=== PATIENT | male | born 1960 | race Caucasian/White ===

== ENCOUNTER 2020-09-16 07:46 | Day surgery (SDC) | payer BC ==
[2020-09-15 09:13] LABS: Absolute Lymphocytes (CBC) 1.5 K/uL (0.7-4.9); Basophils % 0.5 % (0-1.3); Hematocrit 47.8 % (39.6-49.0); Lymphocytes % 18.8 % (15.3-44.8); MPV 8.6 fL (7.6-11.3); RBC Red Blood Cell Count 5.49 M/uL (4.33-5.43)
[2020-09-15 09:28] LABS: Potassium 4.6 mmol/L (3.5-5.1)
--- NOTE | 2020-09-16 06:10 | EKG ---
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
--- OUTSIDE RECORDS SUMMARY | 2020-09-16 07:48 | XMS REPORT | Clinical Summary ---
:1960 Author Organization [facility] Address [address] [place] [id number] Care Team Providers Name Role Phone Caden Duffy MD Primary Care Provider Allergies Active Allergy Reactions Severity Noted Date Comments Penicillin 10/17/2017 Medications Medication Sig Dispensed Refills Start Date End Date Status acetaminophen-codeine TK 1 T PO Q 6 0 10/17/2017 Active (TYLENOL WITH CODEINE #3) H PRN 300-30 mg per tablet etodolac (LODINE) 500 MG TK 1 T PO BID 3 11/27/2017 Active tablet methylPREDNISolone (MEDROL TK UTD ON 0 10/17/2017 Active DOSEPAK) 4 mg tablet PACKAGE Active Problems No known active problems Surgical History Surgery Date Site/Laterality Comments KNEE SURGERY LUMBAR SPINE SURGERY 09/04/1989 - 09/03/1990 L4-5 -- Dr. Dickey LUMBAR SPINE SURGERY 09/04/1995 - 09/03/1996 L4-5 - Dr. Collins LUMBAR SPINE SURGERY 09/04/2013 - 09/03/2014 L4-5 -- [facility] - Dr. Tirado SHOULDER SURGERY 09/04/2015 - 09/03/2016 [facility] -- Dr. Palacios KNEE SURGERY 09/04/2016 - 09/03/2017 [place] -- Dr. Palacios Medical History Medical History Date Comments Chronic back pain Family History Medical History Relation Name Comments Cancer Father Cancer Mother Cancer Sister Relation Name Status Comments Father Mother Sister Social History Tobacco Use Types Packs/Day Years Used Date Never Smoker Smokeless Tobacco: Never Used Tobacco Cessation: Counseling Given: No Alcohol Use Drinks/Week oz/Week Comments Yes social Sex Assigned at Date Recorded Not on file Last Filed Vital Signs Not on file Plan of Treatment Health Maintenance Due Date Last Done Comments COVID-19 VACCINE (1 of 2) 1978 COLONOSCOPY SCREENING 2012 SHINGLES VACCINES (#1) 2012 INFLUENZA VACCINE 04/04/2020 Results Not on fileafter 09/16/2019 Advance Directives For more information, please contact: [phone] Type Date Recorded 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
[2020-09-16] MEDS ORDERED: Ringers Lactate 1,000 ML IV ONE (08:13)
[2020-09-16] MEDS: CEFAZOLIN/SWI 1gm 1 GM/10 ML SYR ONE ×2 (08:55→09:15)
[2020-09-16] MEDS ORDERED: FENTANYL CITR 100 MCG/2 ML ONE (08:58)
[2020-09-16] MEDS ORDERED: MIDAZOLAM HCL 2 MG/2 ML INJ ONE (08:58)
[2020-09-16] MEDS ORDERED: propofoL 200 MG/20 ML VIAL IV ONE (08:58)
[2020-09-16] MEDS ORDERED: KETOROLAC 30 MG/ML INJ ONE (08:59)
[2020-09-16] MEDS ORDERED: LIDOCAINE 2% MPF 5 ML VIAL ONE (08:59)
[2020-09-16] MEDS ORDERED: dexAMETHasone 4 MG/ML VIAL ONE (08:59)
[2020-09-16] MEDS ORDERED: ONDANSETRON 4 MG/2 ML VIAL ONE (08:59)
--- NOTE | 2020-09-16 10:55 | OP ---
Date of Procedure: 09/16/2020 Surgeon: Chris Pennington MD [employer] Installer: BLU Villatoro. Preoperative Diagnosis: Back mass. Postoperative Dignosis: Back mass. Procedure: Wide excision, back mass 5 x 3 cm with layered closure. Estimated Blood Loss: Minimal. Specimen: Right back mass. Findings: As above. Anesthesia: General. Complications: None. Disposition: The patient tolerated the procedure in stable condition and taken to Recovery in good g eneral condition. Procedure In Detail: The patient was brought to the OR and placed in supine position. General anest hesia was begun. The patient placed in the left lateral position. Prepped and draped in the usual s terile fashion. Then, Marcaine 0.5% was infiltrated locally. A 15-blade was used to make a 5 x 3 cm incision in the right mid back. This was in total excised and sent to Pathology as specimen. Wound irrigated. Bleeding controlled with cautery. Then, flaps were created and 0 chromic used to reappr oximate subcutaneous tissue and 2-0 nylon used to close the skin. Sterile dressing was applied. The patient was awakened and taken to Recovery in good condition. Discharge Note: The patient will go to Day Surgery and home when stable. Disposition: Home. Condition: Stable. Discharge Instructions: Resume home medications and diet. Activity as tolerated. No heavy lifting. Remove outer dressing in 2 days. Shower. Keep wound clean and dry. Follow up in my office in a w [place] & [place]. Call for appointment. Tylenol No. 3 one tablet p.o. q.4 p.r.n. pain. /MODL Voice ID: [id number] Report ID: [id number]
[2020-09-16 13:45] VITALS: BP 132/82; TEMP 97; O2SAT 94
== END 2020-09-16 11:50 | disposition home health service (06) ==
LOC: OR 07:46
PROVIDERS: ATTEND Surgery
PROC: 0JB70ZZ Excision of Back Subcutaneous Tissue and Fascia, Open Approach (ICD-10-PCS; principal; 2020-09-16 09:00)
DX: D17.1 Benign lipomatous neoplasm of skin and subcutaneous tissue of trunk (principal); Z20.822 Contact with and (suspected) exposure to COVID-19
CPT/HCPCS: 93005; 85025; 80048; 36415; 88305; 11406; U0002; J2704; J1100; J2250; J3010; J0690; J7120; J2405; 88304

== ENCOUNTER 2020-09-28 07:26 | Day surgery (SDC) | payer BC ==
[~2020-09-28 07:26] MED LIST: CIPROFLOXACIN 400mg IV 400 MG/200 ML BAG IV SCH
--- OUTSIDE RECORDS SUMMARY | 2020-09-28 07:32 | XMS REPORT | Clinical Summary ---
:1960 Author Organization [facility] Address [address] [place] [id number] Care Team Providers Name Role Phone Caden [...] SPINE SURGERY 09/04/2013 - 09/03/2014 L4-5 -- [facility] - Dr. Tirado SHOULDER SURGERY 09/04/2015 - 09/03/2016 [facility] -- Dr. Palacios KNEE SURGERY 09/04/2016 - 09/03/2017 [facility] -- Dr. 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
[2020-09-28] MEDS ORDERED: Ringers Lactate 1,000 ML IV ONE (08:00)
[2020-09-28] MEDS ORDERED: CIPROFLOXACIN 400mg IV 400 MG/200 ML BAG IV ONE (08:00)
[2020-09-28] MEDS ORDERED: propofoL 200 MG/20 ML VIAL IV ONE (08:27)
[2020-09-28] MEDS ORDERED: FENTANYL CITR 100 MCG/2 ML ONE (08:28)
[2020-09-28] MEDS ORDERED: LIDOCAINE 1% MPF 30 ML VIAL ONE (08:28)
[2020-09-28] MEDS ORDERED: MIDAZOLAM HCL 2 MG/2 ML INJ ONE (08:28)
[2020-09-28] MEDS ORDERED: KETOROLAC 30 MG/ML INJ ONE (09:27)
[2020-09-28] MEDS ORDERED: ONDANSETRON 4 MG/2 ML VIAL ONE (09:27)
[2020-09-28] MEDS ORDERED: dexAMETHasone 10 MG/ML VIAL ONE (09:27)
--- NOTE | 2020-09-28 09:44 | OP ---
Date of Procedure: 09/28/2020 Surgeon: Chris Pennington MD Rehab Aide: BLU Villatoro. Preoperative Diagnosis: Right back mass, benign tumor, margins closed. Postoperative Diagnosis: Right back mass, benign tumor, margins closed. Procedure: Wide excision, right back mass 10 x 4 cm with layered closure. Estimated Blood Loss: Minimal. Specimen: Right back mass. Finding: As above. Anesthesia: General. Complications: None. Disposition: The patient tolerated the procedure in stable condition and taken to Recovery in good g eneral condition. Description Of Procedure: The patient was brought to the OR and placed in the left lateral position, prepped and draped in the usual sterile fashion. Marcaine 0.5% was infiltrated locally. A 15-blade was used to make a 10 x 4 cm incision to excise the previous incisions and the dissection proceeded through the all the way down to the muscle along the subcutaneous tissue. It was excised and the who le biopsy cavity was excised and sent to Pathology after being appropriately labeled. Wound was irri gated. Bleeding controlled with cautery. Flaps created. 0 chromic and 2-0 chromic were used to dimas roximate the deep subcutaneous tissue and then 3-0 nylon was used to close the skin. Sterile dressin g was applied. The patient was awakened and taken to Recovery in good general condition. Discharge Note: The patient will go to Day Surgery and home when stable. Disposition: Home. Condition: Stable. Discharge Instructions: Resume home medications and diet. Activity as tolerated. No heavy lifting. Remove outer dressing in 2 days. Shower. Keep wound clean and dry. Follow up in my office in 2 w eems. Call for appointment. Tylenol No. 3 one tablet p.o. q.4 p.r.n. pain. Keflex 500 mg p.o. q.6h . /MODL Voice ID: [id number] Report ID: [id number]
[2020-09-28 10:18] VITALS: BP 124/87; TEMP 97; O2SAT 96
[2020-09-28] MEDS ORDERED: HYDROCODONE/APAP 7.5/325 MG TAB ONE (10:43)
== END 2020-09-28 11:00 | disposition home or self-care (01) ==
LOC: OR 07:26
PROVIDERS: ATTEND Surgery
PROC: 0JB70ZZ Excision of Back Subcutaneous Tissue and Fascia, Open Approach (ICD-10-PCS; principal; 2020-09-28 08:30)
DX: R22.2 Localized swelling, mass and lump, trunk (principal); Z20.822 Contact with and (suspected) exposure to COVID-19
CPT/HCPCS: 88305; 11406; U0002; J2704; J2250; J3010; J1100; J7120; J2405; J0744

== ENCOUNTER 2021-02-22 13:41 | Emergency (ER) | payer BC ==
--- NOTE | 2021-02-22 16:28 | RAD REPORT ---
EXAM DESCRIPTION: RAD - Chest Single View - 02/22/2021 4:14 pm CLINICAL HISTORY: COUGH Chest pain. COMPARISON: Chest Pa And Lat (2 Views) dated 08/04/2020; CHEST SINGLE VIEW dated 03/03/2010; CHEST SIN GLE VIEW dated 03/02/2010; CHEST SINGLE VIEW dated 08/05/2006 FINDINGS: Portable technique limits examination quality. Mild interstitial lung opacities are present, suggesting bronchitis or viral infection. The heart is normal in size. No displaced fractures.
--- NOTE | 2021-02-22 16:48 | ER ---
Nurse's Notes [facility] Name: Angel Luis Sales Age: 60 yrs Sex: Male : 1960 Arrival Date: 02/22/2021 Time: 13:44 Bed 26 Private MD: Diagnosis: Coronavirus infection, unspecified Presentation: 02/22 14:07 Chief complaint: Patient states: Can't take deep breaths, chest pain for 3-4 days. ll1 Covid symptoms for 5 days, fatigue, weak, body aches. His test was negative, although his 's was positive. Coronavirus screen: Client denies travel out of the [place] in the last 14 days. chills, congestion, cough unrelated to allergies, difficulty breathing, fatigue, fever, headache, muscle pain, runny nose, shaking with chills, shortness of breath, loss of taste or smell, Client presents with at least one sign or symptom that may indicate coronavirus-19. Standard/surgical mask placed on the client. Ebola Screen: Patient denies travel to an Ebola-affected area in the 21 days before illness onset. Initial Sepsis Screen: Does the patient meet any 2 criteria? HR > 90 bpm. No. Patient's initial sepsis screen is negative. Does the patient have a suspected source of infection? Yes: Productive cough/pneumonia. Risk Assessment: Do you want to hurt yourself or someone else? Patient reports no desire to harm self or others. Onset of symptoms was February 18, 2021. 14:07 Method Of Arrival: Ambulatory ll1 14:07 Acuity: JOE 3 ll1 Triage Assessment: 15:23 General: Appears in no apparent distress. Behavior is calm, cooperative. Pain: Denies ak2 pain. Respiratory: Reports shortness of breath Onset: The symptoms/episode began/occurred gradually, the patient has mild shortness of breath Denies. 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 Flu vaccine is not up to date. - Social history:: Smoking status: Patient denies any tobacco usage or history of. Screenin:24 Abuse screen: Denies threats or abuse. Denies injuries from another. Nutritional ak2 screening: No deficits noted. Tuberculosis screening: No symptoms or risk factors identified. Fall Risk None identified. Assessment: 15:24 General: Appears in no apparent distress. Pain: Denies pain. Neuro: No deficits noted. ak2 Cardiovascular: Rhythm is regular. Respiratory: Airway is patent Respiratory effort is even, unlabored, Vital Signs: 14:07 BP 150 / 95; Pulse 94; Resp 17; Temp 98.8; Pulse Ox 100% ; Weight 77.11 kg; Height 5 ll1 ft. 6 in. (167.64 cm); Pain 8/10; 15:25 BP 149 / 80; Pulse 86; Resp 20; Pulse Ox 96% on R/A; ak2 16:54 BP 132 / 74; Pulse 78; Resp 18; Pulse Ox 100% on R/A; ak2 14:07 Body Mass Index 27.44 (77.11 kg, 167.64 cm) ll1 ED Course: 13:44 Patient arrived in ED. wm 14:11 Triage completed. ll1 14:12 Arm band placed on. ll1 14:14 Aileen Iverson FNP-C is [facility]. kb 14:14 Timoteo Tucker MD is Attending Physician. kb 15:20 Heriberto Meek is Primary Nurse. ak2 15:24 Patient has correct armband on for positive identification. ak2 15:24 No provider procedures requiring assistance completed. ak2 16:55 Patient did not have IV access during this emergency room visit. ak2 Administered Medications: No medications were administered Outcome: 16:47 Discharge ordered by MD. kb 16:54 Discharged to home ambulatory. ak2 16:54 Condition: good 16:54 Discharge instructions given to patient. 16:55 Patient left the ED. ak2 Signatures: Aileen Iverson FNP-C FNP-Jaya Mccord RN RN 1 Heriberto Meek ak2 Kristin Verma
--- NOTE | 2021-02-22 16:48 | EDPHYS ---
Physician Documentation [facility] Name: Angel Luis Sales Age: 60 yrs Sex: Male : 1960 Arrival Date: 02/22/2021 Time: 13:44 Bed 26 Private MD: ED Physician Timoteo Tucker HPI: 02/22 17:28 This 60 yrs old Male presents to ER via Ambulatory with complaints of kb Shortness Of Breath. 17:28 The patient or guardian reports cough, difficulty breathing, flu symptoms, low-grade kb fever. Onset: The symptoms/episode began/occurred 1 week(s) ago. Severity of symptoms: At their worst the symptoms were mild, in the emergency department the symptoms are unchanged. Modifying factors: The symptoms are alleviated by nothing, the symptoms are aggravated by nothing. Associated signs and symptoms: Pertinent positives: fever. The patient has not experienced similar symptoms in the past. The patient has not recently seen a physician. Pt reports cough, fever, fatigue and malaise for a week. States his tested positive for covid and has had the same symptoms. States he brought her in to be evaluated today, but figured he would get checked out too while he was here. Pt tested negative for covid at onset of symptoms. 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 Flu vaccine is not up to date. - Social history:: Smoking status: Patient denies any tobacco usage or history of. ROS: 15:55 Constitutional: Positive for body aches, chills, fatigue, fever, malaise. kb 15:55 Respiratory: Positive for cough, shortness of breath, Negative for dyspnea on exertion, hemoptysis, orthopnea, pleurisy, sputum production, wheezing. 15:55 All other systems are negative. 17:35 Neuro: Negative for headache, weakness, numbness, tingling, and seizure. kb Exam: 17:26 Constitutional: This is a well developed, well nourished patient who is awake, alert, kb and in no acute distress. Head/Face: Normocephalic, atraumatic. ENT: Moist Mucous membranes Cardiovascular: Regular rate and rhythm with a normal S1 and S2. No gallops, murmurs, or rubs. No pulse deficits. Respiratory: Respirations even and unlabored. No increased work of breathing, no retractions or nasal flaring. Abdomen/GI: Soft, non-tender. No distention Skin: Warm, dry with normal turgor. Normal color. MS/ Extremity: Pulses equal, no cyanosis. Neurovascular intact. Full, normal range of motion. Neuro: Awake and alert, GCS 15, oriented to person, place, time, and situation. Moves all extremities. Normal gait. Psych: Awake, alert, with orientation to person, place and time. Behavior, mood, and affect are within normal limits. 17:26 Respiratory: Breath sounds: are clear throughout. Vital Signs: 14:07 BP 150 / 95; Pulse 94; Resp 17; Temp 98.8; Pulse Ox 100% ; Weight 77.11 kg; Height 5 ll1 ft. 6 in. (167.64 cm); Pain 8/10; 15:25 BP 149 / 80; Pulse 86; Resp 20; Pulse Ox 96% on R/A; ak2 16:54 BP 132 / 74; Pulse 78; Resp 18; Pulse Ox 100% on R/A; ak2 14:07 Body Mass Index 27.44 (77.11 kg, 167.64 cm) ll1 MDM: 15:17 Patient medically screened. 15:53 Data reviewed: vital signs, nurses notes. Data interpreted: Pulse oximetry: on room air kb is 96 %. Interpretation: normal. 16:47 Counseling: I had a detailed discussion with the patient and/or guardian regarding: the kb historical points, exam findings, and any diagnostic results supporting the discharge/admit diagnosis, lab results, radiology results, the need for outpatient follow up, a family practitioner, to return to the emergency department if symptoms worsen or persist or if there are any questions or concerns that arise at home. 02/22 14:14 Order name: COVID-19 : Document "Date of Symptom Onset" if Symptomatic. 02/22 14:57 Order name: CORONAVIRUS EDMS 02/22 14:14 Order name: Chest Pa And Lat (2 Views) XRAY 02/22 16:29 Order name: RAD; Complete Time: 16:29 EDMS 02/22 16:45 Order name: SARS-COV-2 RT PCR; Complete Time: 16:47 EDMS Administered Medications: No medications were administered Disposition: 02/22/21 16:47 Discharged to Home. Impression: Coronavirus infection, unspecified. - Condition is Stable. - Discharge Instructions: COVID-19. - Medication Reconciliation Form, Thank You Letter, Antibiotic Education, Prescription Opioid Use form. - Follow up: Emergency Department; When: As needed; Reason: Worsening of condition. Follow up: Private Physician; When: 2 - 3 days; Reason: Recheck today's complaints, Continuance of care, Re-evaluation by your physician. Signatures: Dispatcher [employer] EDAileen Osorio, EDITH MCKENZIE-Jaya Mccord RN RN ll1 Heriberto Meek Corrections: (The following items were deleted from the chart) 16:55 16:47 02/22/2021 16:47 Discharged to Home. Impression: Coronavirus infection, ak2 unspecified. Condition is Stable. Forms are Medication Reconciliation Form, Thank You Letter, Antibiotic Education, Prescription Opioid Use. Follow up: Emergency Department; When: As needed; Reason: Worsening of condition. Follow up: Private Physician; When: 2 - 3 days; Reason: Recheck today's complaints, Continuance of care, Re-evaluation by your physician. kb
[2021-02-22 17:35] VITALS: TEMP 98.8
[2021-02-22 17:39] VITALS: BP 132/74; O2SAT 100
== END 2021-02-22 16:55 | disposition home or self-care (01) ==
LOC: ER 13:41
DX: U07.1 COVID-19 (principal); Z85.72 Personal history of non-Hodgkin lymphomas
CPT/HCPCS: 71045; 99281; U0003

== ENCOUNTER 2021-02-24 07:50 | Observation (INO) | payer BC ==
--- NOTE | 2021-02-24 08:33 | RAD REPORT ---
EXAM DESCRIPTION: RAD - Chest Single View - 02/24/2021 8:27 am CLINICAL HISTORY: COVID +;Cough Chest pain. COMPARISON: Chest Single View dated 02/22/2021; Chest Pa And Lat (2 Views) dated 08/04/2020; CHEST SIN GLE VIEW dated 03/03/2010; CHEST SINGLE VIEW dated 03/02/2010 FINDINGS: Portable technique limits examination quality. Moderate bilateral pulmonary opacities are noted, moderately progressive since the comparative study. Most likely, this is related to pulmonary infection/viral infection. The heart is upper limit normal in size. No displaced fractures.
[2021-02-24 08:37] LABS: Absolute Lymphocytes (CBC) 0.5 K/uL (0.7-4.9); Basophils % 0.5 % (0-1.3); Lymphocytes % 18.6 % (15.3-44.8); MPV 8.8 fL (7.6-11.3); RBC Red Blood Cell Count 5.02 M/uL (4.33-5.43)
[2021-02-24] MEDS ORDERED: METHYLPREDNISOLONE 125 MG INJ ONE (08:49)
[2021-02-24 08:57] LABS: Potassium 3.7 mmol/L (3.5-5.1)
[2021-02-24] MEDS ORDERED: HYDROCODONE/CHLORPHEN 5 ML/OSYR ONE (08:57)
--- NOTE | 2021-02-24 11:30 | EDPHYS ---
Physician Documentation [facility] Name: Angel Luis Sales Age: 60 yrs Sex: Male : 1960 Arrival Date: 02/24/2021 Time: 07:52 Bed 18 Private MD: Caden Triana R ED Physician Lv Mccurdy HPI: 02/24 09:47 This 60 yrs old Male presents to ER via Ambulatory with complaints of Fever, rn Breathing Difficulty, Chest Pain. 09:47 The patient reports fever, not measured (subjective). Onset: The symptoms/episode rn began/occurred 1 week(s) ago. Modifying factors: there are no obvious modifying factors. Associated signs and symptoms: Pertinent positives: chills, cough, shortness of breath, Pertinent negatives: abdominal pain, altered mental status. Severity of symptoms: At their worst the symptoms were moderate in the emergency department the symptoms are unchanged. The patient has not experienced similar symptoms in the past. The patient has been recently seen by a physician:. Reports tested positive for COVID this past week, now symptoms worsening, reports increased sob. No chronic lung problems.. 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 - Social history:: Smoking status: . - Family history:: not pertinent. - Hospitalizations: : No recent hospitalization is reported. 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 Exam: 09:47 Constitutional: This is a well developed, well nourished patient who is awake, alert, rn + mild tachypnea Head/Face: Normocephalic, atraumatic. Eyes: Pupils equal round and reactive to light, extra-ocular motions intact. Lids and lashes normal. Conjunctiva and sclera are non-icteric and not injected. Cornea within normal limits. Periorbital areas with no swelling, redness, or edema. Cardiovascular: Regular rate and rhythm. No pulse deficits. Respiratory: + mild tachypnea, no retractions Abdomen/GI: soft, non-tender Skin: Warm, dry MS/ Extremity: Pulses equal, no cyanosis. Neuro: Awake and alert, GCS 15 Vital Signs: 07:57 BP 142 / 80; Pulse 96; Resp 18; Pulse Ox 100% on R/A; ph 07:57 Temp 98.9; Weight 77.11 kg; Height 5 ft. 6 in. (167.64 cm); ph 09:26 BP 140 / 87; Pulse 91; Resp 24; Pulse Ox 92% on R/A; ph 11:00 BP 126 / 78; Pulse 86; Resp 22; Pulse Ox 91% on R/A; ph 12:08 BP 118 / 72; Pulse 97; Resp 22; Pulse Ox 93% on R/A; ph 13:10 BP 130 / 79; Pulse 82; Resp 22; Pulse Ox 91% on R/A; ph 14:00 BP 118 / 72; Pulse 89; Resp 20; Pulse Ox 91% on R/A; ph 15:30 BP 127 / 82; Pulse 87; Resp 20; Pulse Ox 92% on R/A; ph 07:57 Body Mass Index 27.44 (77.11 kg, 167.64 cm) ph MDM: 08:03 Patient medically screened. rn 11:28 Differential diagnosis: viral Infection, URI, pneumonia. Data reviewed: vital signs, rn nurses notes, lab test result(s), radiologic studies, plain films, and as a result, I will admit patient. Counseling: I had a detailed discussion with the patient and/or guardian regarding: the historical points, exam findings, and any diagnostic results supporting the discharge/admit diagnosis, lab results, radiology results, the need for further work-up and treatment in the hospital. Response to treatment: the patient's symptoms have mildly improved after treatment, and as a result, I will admit patient. Admission orders: after a detailed discussion of the patient's condition and case, the admit orders are written by me. ED course: Pt with worsening COVID pneumonia, oxygen 91%, still feels bad, will obs to Dr. Lacey for further care. . 02/24 08:04 Order name: Blood Culture Adult (2) rn 02/24 08:04 Order name: BMP rn 02/24 08:04 Order name: CBC with Diff rn 02/24 08:04 Order name: NT PRO-BNP rn 02/24 08:04 Order name: Procalcitonin rn 02/24 08:39 Order name: CBC with Automated Diff; Complete Time: 11:03 EDMS 02/24 08:04 Order name: XRAY CXR (1 view) rn 02/24 08:34 Order name: RAD; Complete Time: 11:03 EDMS 02/24 08:57 Order name: Basic Metabolic Panel; Complete Time: 11:03 EDMS 02/24 08:57 Order name: NT PRO-BNP; Complete Time: 11:03 EDMS 02/24 09:22 Order name: Procalcitonin; Complete Time: 11:03 EDMS 02/24 15:10 Order name: D-Dimer EDMT 02/24 15:37 Order name: C-Reactive Protein EDMT 02/24 15:37 Order name: Ferritin EDMT 02/24 08:04 Order name: EKG; Complete Time: 08:05 rn 02/24 08:04 Order name: Cardiac monitoring; Complete Time: 08:23 rn 02/24 08:04 Order name: EKG - Nurse/Tech; Complete Time: 09:38 rn 02/24 08:04 Order name: IV Saline Lock; Complete Time: 08:23 rn 02/24 08:04 Order name: Labs collected and sent; Complete Time: 08:23 rn 02/24 08:04 Order name: O2 Per Protocol; Complete Time: 08:23 rn 02/24 08:04 Order name: O2 Sat Monitoring; Complete Time: 08:23 rn 02/24 14:32 Order name: Labs - recollect needed; Complete Time: 19:36 ss Administered Medications: 08:50 Drug: SOLU-Medrol (methylPrednisoLONE) 125 mg Route: IVP; Site: right antecubital; ph 09:38 Follow up: Response: No adverse reaction ph 08:50 Drug: Tussionex Pennkinetic ER (chlorpheniramine-hydrocodone) 5 ml Route: PO; ph 09:38 Follow up: Response: No adverse reaction ph Disposition: 02/24/21 11:30 Hospitalization ordered by Dell Lacey for Observation. Preliminary diagnosis are Viral pneumonia, not elsewhere classified - COVID, Hypoxemia. - Bed requested for Intensive Care Unit. - Status is Observation. ph - Condition is Stable. - Problem is new. - Symptoms have worsened. Signatures: Dispatcher [employer] EDMS Lv Mcucrdy MD MD rn Smirch, Shelby, RN RN ss Roro Zamora RN RN ph Jennifer Martinez RN RN tw2 Corrections: (The following items were deleted from the chart) 14:37 11:30 Hospitalization Ordered by Dell Lacey DO for Observation. Preliminary ss diagnosis is Viral pneumonia, not elsewhere classified - COVID; Hypoxemia. Bed requested for Telemetry/MedSurg (observation). Status is Observation. Condition is Stable. Problem is new. Symptoms have worsened. rn 17:06 14:37 02/24/2021 11:30 Hospitalization Ordered by Dell Lacey DO for Observation. ph Preliminary diagnosis is Viral pneumonia, not elsewhere classified - COVID; Hypoxemia. Bed requested for Intensive Care Unit. Status is Observation. Condition is Stable. Problem is new. Symptoms have worsened. ss
--- NOTE | 2021-02-24 11:30 | ER ---
Nurse's Notes [facility] Name: Angel Luis Sales Age: 60 yrs Sex: Male : 1960 Arrival Date: 02/24/2021 Time: 07:52 Bed 18 Private MD: Caden Triana R Diagnosis: Viral pneumonia, not elsewhere classified-COVID;Hypoxemia Presentation: 02/24 07:55 Chief complaint: Patient states: i tested + for COVID and i thought i had a handle on tw2 it but last night it just seemed to get worse. i am coughing \T\ SOB. Coronavirus screen: cough unrelated to allergies, difficulty breathing, fever, muscle pain, Client presents with at least one sign or symptom that may indicate coronavirus-19. Standard/surgical mask placed on the client. Provider contacted for isolation considerations. Client reports previous positive COVID test result. Ebola Screen: Patient denies travel to an Ebola-affected area in the 21 days before illness onset. Initial Sepsis Screen: Does the patient meet any 2 criteria? HR > 90 bpm. No. Patient's initial sepsis screen is negative. Does the patient have a suspected source of infection? No. Patient's initial sepsis screen is negative. Risk Assessment: Do you want to hurt yourself or someone else? Patient reports no desire to harm self or others. Onset of symptoms was February 24, 2021. 07:55 Method Of Arrival: Ambulatory tw2 07:55 Acuity: JOE 3 tw2 Triage Assessment: 07:55 General: Appears in no apparent distress. Behavior is calm, cooperative, appropriate tw2 for age. Pain: Complains of pain in back and chest. Respiratory: Reports shortness of breath at rest on exertion cough that is non-productive, persistent Onset: The symptoms/episode began/occurred yesterday, the patient has mild shortness of breath. 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 - Social history:: Smoking status: . - Family history:: not pertinent. - Hospitalizations: : No recent hospitalization is reported. Screenin:56 Abuse screen: Denies threats or abuse. Denies injuries from another. Nutritional ph screening: No deficits noted. Tuberculosis screening: No symptoms or risk factors identified. Fall Risk None identified. Assessment: 08:30 General: Appears in no apparent distress. uncomfortable, well groomed, Behavior is ph calm, cooperative, appropriate for age, Reports fever for 1-2 days. Pain: Complains of pain in chest and back. Neuro: Level of Consciousness is awake, alert, obeys commands, Oriented to person, place, time, situation. Cardiovascular: Reports chest pain, fatigue, shortness of breath, Capillary refill < 3 seconds in bilateral fingers Patient's skin is warm and dry. Respiratory: Reports shortness of breath at rest cough that is pain with cough Airway is patent Respiratory effort is labored, Respiratory pattern is tachypnea. GI: No signs and/or symptoms were reported involving the gastrointestinal system. Patient currently denies diarrhea, nausea, vomiting. Derm: Skin is intact, is healthy with good turgor, Skin is pink, warm \T\ dry. Musculoskeletal: Circulation, motion, and sensation intact. Range of motion: intact in all extremities. 10:00 Reassessment: Patient appears in no apparent distress at this time. Patient and/or ph family updated on plan of care and expected duration. Pain level reassessed. 11:00 Reassessment: Patient appears in no apparent distress at this time. Patient and/or ph family updated on plan of care and expected duration. Pain level reassessed. Patient is alert, oriented x 3, equal unlabored respirations, skin warm/dry/pink. 12:08 Reassessment: Patient appears in no apparent distress at this time. Patient and/or ph family updated on plan of care and expected duration. Pain level reassessed. Patient is alert, oriented x 3, equal unlabored respirations, skin warm/dry/pink. Dr Lacey at bedside to speak w/ pt. 13:00 Reassessment: Patient appears in no apparent distress at this time. Patient and/or ph family updated on plan of care and expected duration. Pain level reassessed. Patient is alert, oriented x 3, equal unlabored respirations, skin warm/dry/pink. 14:00 Reassessment: Patient appears in no apparent distress at this time. Patient and/or ph family updated on plan of care and expected duration. Pain level reassessed. Patient is alert, oriented x 3, equal unlabored respirations, skin warm/dry/pink. Pt resting comfortably, VSS. 15:00 Reassessment: Patient appears in no apparent distress at this time. Patient and/or ph family updated on plan of care and expected duration. Pain level reassessed. Patient is alert, oriented x 3, equal unlabored respirations, skin warm/dry/pink. Vital Signs: 07:57 BP 142 / 80; Pulse 96; Resp 18; Pulse Ox 100% on R/A; ph 07:57 Temp 98.9; Weight 77.11 kg; Height 5 ft. 6 in. (167.64 cm); ph 09:26 BP 140 / 87; Pulse 91; Resp 24; Pulse Ox 92% on R/A; ph 11:00 BP 126 / 78; Pulse 86; Resp 22; Pulse Ox 91% on R/A; ph 12:08 BP 118 / 72; Pulse 97; Resp 22; Pulse Ox 93% on R/A; ph 13:10 BP 130 / 79; Pulse 82; Resp 22; Pulse Ox 91% on R/A; ph 14:00 BP 118 / 72; Pulse 89; Resp 20; Pulse Ox 91% on R/A; ph 15:30 BP 127 / 82; Pulse 87; Resp 20; Pulse Ox 92% on R/A; ph 07:57 Body Mass Index 27.44 (77.11 kg, 167.64 cm) ph ED Course: 07:52 Patient arrived in ED. ds1 07:53 Caden Triana MD is Private Physician. ds1 07:54 Roro Zamora, ANGELICA is Primary Nurse. ph 07:57 Patient has correct armband on for positive identification. Placed in gown. Bed in low ph position. Call light in reach. Side rails up X 1. Pulse ox on. NIBP on. Door closed. Noise minimized. Warm blanket given. 08:00 Triage completed. tw2 08:03 Lv Mccurdy MD is Attending Physician. rn 08:45 Inserted saline lock: 20 gauge in right antecubital area, using aseptic technique. ph 11:29 Dell Lacey DO is Hospitalizing Provider. rn 13:11 Arm band placed on. ph 13:11 No provider procedures requiring assistance completed. ph 13:11 Patient admitted, IV remains in place. ph 14:50 Inserted saline lock: 20 gauge in left forearm, using aseptic technique. Blood dh4 collected. Administered Medications: 08:50 Drug: SOLU-Medrol (methylPrednisoLONE) 125 mg Route: IVP; Site: right antecubital; ph 09:38 Follow up: Response: No adverse reaction ph 08:50 Drug: Tussionex Pennkinetic ER (chlorpheniramine-hydrocodone) 5 ml Route: PO; ph 09:38 Follow up: Response: No adverse reaction ph Outcome: 11:30 Decision to Hospitalize by Provider. rn 17:06 Patient left the ED. ph 17:06 Admitted to Med/surg accompanied by tech, via wheelchair, with chart. ph 17:06 Condition: stable 17:06 Instructed on the need for admit. Signatures: Jessica Britton ds1 Lv Mccurdy MD MD rn Hall, Patricia, RN RN Jennifer Martinez RN RN 2 Jered Huang 4
--- NOTE | 2021-02-24 12:30 | P.HP ---
Certification for Inpatient Patient admitted to: Observation With expected LOS: <2 Midnights Patient will require the following post-hospital care: None Practitioner: I am a practitioner with admitting privileges, knowledge of patient current condition, hospital course, and medical plan of care. Services: Services provided to patient in accordance with Admission requirements found in Title 42 Section 412.3 of the Code of Federal Regulations Patient History Date of Service: 02/24/21 Primary Care Provider: Dr. Triana Reason for admission: Cough, shortness of breath History of Present Illness: 60-year-old male without any major medical problems presented to the emergency room with worsening COVID 19 like symptoms. Patient reports increasing cough, congestion, shortness of breath, fatigue, and fever over the last 7-10 days. Patient was seen in the ER on 02/22. He was diagnosed with COVID 19 at that time. His symptoms were mild and was sent home. His had similar issues in problems. His is currently admitted to the hospital for COVID 19 pneumonia. Over the last several days his with symptoms have worsened. He came to the ER for further evaluation. In the ER patient was evaluated. Patient slightly tachypneic. Room-air saturations within normal range. White count 2, hemoglobin 14. Sodium 135, potassium 3.7. BUN of 17, creatinine 1.03 with a GFR 74. Pro calcitonin within normal range. X-ray shows bilateral infiltrates suggestive of viral infection. Patient treated in the emergency room. Patient admitted for observation. Allergies Penicillins Allergy (Mild, Verified 09/28/20 08:24) unknown latex Allergy (Verified 09/28/20 08:24) Rash Home Medications: Homocysteine 1 tab PO SEECOM 09/15/20 Wob Enzymes 1 tab PO SEECOM 09/15/20 - Past Medical/Surgical History Diabetic: No Past Medical History: Patient denies medical history -: Back surgery times 2 -: Shoulder cuff repair -: Knee surgery Psychosocial/ Personal History: Patient is . 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 - Family History Family History: Reviewed- Non-Contributory - Social History Smoking Status: Never smoker Alcohol use: Yes CD- Drugs: No Caffeine use: Yes Place of Residence: Home Review of Systems General: Fever, Chills, Weakness, Malaise, As per HPI Eyes: Unremarkable ENT: Nose Congestion, As per HPI Respiratory: Cough, Shortness of Breath, SOB with Excertion, As per HPI Cardiovascular: Unremarkable Gastrointestinal: Unremarkable Genitourinary: Unremarkable Musculoskeletal: As per HPI Integumentary: Unremarkable Neurological: Unremarkable Lymphatics: Unremarkable Physical Examination - Physical Exam General: Alert, In no apparent distress, Oriented x3, Cooperative, Other (Patient with cough. Mild tachypnea noted. Room-air saturations within normal range.) HEENT: Atraumatic Neck: Supple Respiratory: Other (Decreased to the bases bilateral.) Cardiovascular: Normal pulses, Regular rate/rhythm Gastrointestinal: Normal bowel sounds, No tenderness, No masses, No rebound, No guarding Musculoskeletal: No erythema, No tenderness, No warmth Integumentary: No tenderness/swelling, No erythema, No warmth, No cyanosis Neurological: Normal speech, Normal strength at 5/5 x4 extr, Normal tone, Normal affect - Studies Laboratory Data (last 24 hrs) 02/24/21 08:20: WBC 2.60 L, Hgb 14.8, Hct 43.0, Plt Count 151 L 02/24/21 08:20: Sodium 135 L, Potassium 3.7, BUN 17, Creatinine 1.03, Glucose 91 Assessment and Plan - Plan Impression: Shortness of breath secondary to bilateral COVID 19 pneumonia Plan: Patient will be admitted for further evaluation and treatment. Will obtain CRP and ferritin to further evaluate. Will continue with IV steroids and vitamin supplementation. Will place on DVT prophylaxis-Lovenox. Will provide medication for cough. Will continue with albuterol/Atrovent as needed. Will continue to monitor CRP/ferritin. Pulmonology consulted to further evaluate. Recommend to continue proning, incentive spirometer. No need for IV Remdesivir or Acterma at this time as symptoms appear to be mild to moderate. Room-air saturations within normal range. Will continue to reassess and monitor. If significant improvement will consider discharge as early as tomorrow. If symptoms worsen will need to consider other options for treatment. Will continue to monitor closely. Anticipate improvement over the next 24-48 hr. DVT prophylaxis: Lovenox Code status: Full code Advanced care planning-30 min: Patient wishes to go home at discharge. Discharge Plan: Home Plan to discharge in: 24 Hours - Advance Directives Does patient have a Living Will: No Does patient have a Durable POA for Healthcare: No - Code Status/Comfort Care Code Status Assessed: Yes (Patient is full code) Time Spent Managing Pts Care (In Minutes): 55
[2021-02-24 15:37] LABS: Ferritin 728.2 ng/mL (26-388)
[2021-02-24] MEDS ORDERED: BENZONATATE 100 MG CAP PO PRN (17:19)
[2021-02-24] MEDS ORDERED: ALBUTEROL 2.5 MG/3 ML NEB SOL NEB PRN (17:19)
[2021-02-24] MEDS ORDERED: ACETAMINOPHEN 500 MG TAB PO PRN (17:19)
[2021-02-24] MEDS ORDERED: ONDANSETRON 4 MG/2 ML VIAL IV PRN (17:19)
[2021-02-24] MEDS ORDERED: IPRATROPIUM BROM 0.5MG/2.5ML NEB PRN (17:19)
[2021-02-24] MEDS ORDERED: IVERMECTIN 3 MG TABLET PO SCH (18:00)
[2021-02-24 18:25] VITALS: BMI 27.4
[2021-02-24] MEDS: METHYLPREDNISOLONE 125 MG INJ IV SCH (18:39)
[2021-02-24] MEDS: ENOXAPARIN 40 MG/0.4 ML SQ SCH (18:39)
[2021-02-24] MEDS: ASCORBIC ACID 500 MG TABLET PO SCH ×2 (18:39→21:39)
[2021-02-24] MEDS: FAMOTIDINE 20 MG TAB PO SCH (21:39)
[2021-02-24] MEDS: THIAMINE HCL 100 MG TABLET PO SCH (21:39)
[2021-02-25] MEDS: METHYLPREDNISOLONE 125 MG INJ IV SCH ×2 (01:39→09:22)
[2021-02-25 05:23] LABS: BUN Blood Urea Nitrogen 21 mg/dL (7-18); Bicarbonate 26 mmol/L (21-32); Glucose Level 149 mg/dL (74-106); Magnesium 2.4 mg/dL (1.8-2.4); Potassium 4.6 mmol/L (3.5-5.1); Sodium Level 136 mmol/L (136-145)
[2021-02-25 05:35] LABS: Urine Appearance CLEAR (Clear); Urine Bilirubin NEGATIVE (Negative); Urine Blood NEGATIVE (Negative); Urine Color YELLOW (Yellow); Urine Glucose NEGATIVE (Negative); Urine Protein 1+ (Negative); Urine Specific Gravity >=1.030 (1.005-1.030)
--- NOTE | 2021-02-25 05:49 | P.PN ---
Subjective Date of Service: 02/25/21 Primary Care Provider: Dr. Triana Chief Complaint: Cough, shortness of breath Subjective: Improving, Doing well Physical Examination - Vital Signs Temperature: 97.6 F Blood Pressure: 116/73 Pulse: 65 Respirations: 23 Pulse Ox (%): 90 - Studies Laboratory Data (last 24 hrs) 02/24/21 08:20: WBC 2.60 L, Hgb 14.8, Hct 43.0, Plt Count 151 L 02/24/21 08:20: Sodium 135 L, Potassium 3.7, BUN 17, Creatinine 1.03, Glucose 91 Assessment & Plan Discharge Plan: Home Plan to discharge in: 24 Hours Physician Review Additional Text: Physical exam: General: Alert, In no apparent distress, Oriented x3, Cooperative, HEENT: Atraumatic Neck: Supple Respiratory: Other (Decreased to the bases bilateral.) Cardiovascular: Normal pulses, Regular rate/rhythm Gastrointestinal: Normal bowel sounds, No tenderness, No masses, No rebound, No guarding Musculoskeletal: No erythema, No tenderness, No warmth Integumentary: No tenderness/swelling, No erythema, No warmth, No cyanosis Neurological: Normal speech, Normal strength at 5/5 x4 extr, Normal tone, Normal affect Impression: Shortness of breath secondary to bilateral COVID 19 pneumonia Plan: Patient has significantly improved. Case discussed with pulmonology. Will plan for discharge today. Will continue with oral steroids at home along with supplementation. Will also set up oxygen. DVT prophylaxis: Lovenox Code status: Full code Advanced care planning-30 min: Patient wishes to go home at discharge. Time Spent Managing Pts Care (In Minutes): 55
[2021-02-25 06:05] LABS: Urine Microscopic Reflex ORDER UMIC
[2021-02-25 06:21] LABS: Urine Bacteria 20-50 /HPF (NONE SEEN); Urine Mucus 1+ /HPF (NONE SEEN); Urine RBC <5 /HPF (NONE SEEN)
[2021-02-25] MEDS: THIAMINE HCL 100 MG TABLET PO SCH (08:31)
[2021-02-25] MEDS: ASCORBIC ACID 500 MG TABLET PO SCH ×2 (08:31→11:31)
[2021-02-25] MEDS: FAMOTIDINE 20 MG TAB PO SCH (08:31)
[2021-02-25] MEDS: ENOXAPARIN 40 MG/0.4 ML SQ SCH (08:31)
--- NOTE | 2021-02-25 08:45 | P.CNS ---
Date of Consult: 02/25/21 Primary Care Provider: Dr. Triana Chief Complaint: Lugo virus pneumonia History of Present Illness: Patient is 60 years of age presented to the emergency room with worsening lugo virus symptoms more shortness of breath, fatigue currently doing well low sats the phone names sitting next to his without any oxygen he is feeling better 5 Allergies Penicillins Allergy (Mild, Verified 02/24/21 17:59) unknown latex Allergy (Verified 02/24/21 17:59) Rash Home Medications: Ibuprofen 400 mg PO TIDP PRN 02/24/21 - Past Medical/Surgical History Diabetic: No -: COVID + 02/22/21 -: Back surgery times 3 -: Shoulder cuff repair Rt -: Knee surgery Rt -: 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 - Social History Smoking Status: Never smoker Alcohol use: No CD- Drugs: No Caffeine use: Yes Place of Residence: Home Review of Systems 10-point ROS is otherwise unremarkable Respiratory: Cough, Shortness of Breath Physical Examination Temp Pulse Resp BP Pulse Ox 97.6 F 65 23 H 116/73 90 L 02/25/21 05:49 02/25/21 05:49 02/25/21 05:49 02/25/21 05:49 02/25/21 05:49 Laboratory Data (last 24 hrs) 02/24/21 08:20: Sodium 135 L, Potassium 3.7, BUN 17, Creatinine 1.03, Glucose 91 - Problems (1) Acute respiratory failure due to severe acute respiratory syndrome coronavirus 2 (SARS-CoV-2) infection Current Visit: Yes Status: Acute Plan: Patient is 60 years of age admitted with hypoxemia secondary to lugo virus is doing better recommend discharge home on oxygen 2-4 L admitted including prednisone 20 mg twice a day for at least 10 days multi vitamins port low-dose aspirin follow-up with me next week continue with ivermectin
--- NOTE | 2021-02-25 08:55 | P.DS ---
Admission Date: 02/24/21 Discharge Date: 02/25/21 Primary Care Provider: Dr. Triana Disposition: ROUTINE DISCHARGE Discharge Condition: GOOD Reason for Admission: Cough, shortness of breath Consultations: Pulmonary-Dr. Terry Procedures: CXR: FINDINGS: Portable technique limits examination quality. Moderate bilateral pulmonary opacities are noted, moderately progressive since the comparative study. Most likely, this is related to pulmonary infection/viral infection. The heart is upper limit normal in size. No displaced fractures. Medical Problem List: Shortness of breath secondary to bilateral COVID 19 pneumonia Brief History of Present Illness: 60-year-old male without any major medical problems presented to the emergency room with worsening COVID 19 like symptoms. Patient reports increasing cough, congestion, shortness of breath, fatigue, and fever over the last 7-10 days. Patient was seen in the ER on 02/22. He was diagnosed with COVID 19 at that time. His symptoms were mild and was sent home. His had similar issues in problems. His is currently admitted to the hospital for COVID 19 pneumonia. Over the last several days his with symptoms have worsened. He came to the ER for further evaluation. In the ER patient was evaluated. Patient slightly tachypneic. Room-air saturations within normal range. White count 2, hemoglobin 14. Sodium 135, potassium 3.7. BUN of 17, creatinine 1.03 with a GFR 74. Pro calcitonin within normal range. X-ray shows bilateral infiltrates suggestive of viral infection. Patient treated in the emergency room. Patient admitted for observation. Hospital Course: Patient presented with Shortness of breath secondary to bilateral COVID 19 pneumonia. Patient was seen earlier this week and tested positive for COVID 19. Patient continue to have shortness of breath and cough. Patient was admitted for observation. The patient has done well with IV steroids and supplemental treatment. Oxygen saturations above 90% on room air. Patient was seen and evaluated by pulmonology. No further intervention was required. At discharge patient able to ambulate appropriately without significant shortness of breath or desaturations. Pulmonology recommends to continue oxygen at home to maintain sats above 93%. Oxygen will be arranged prior to discharge. Patient may continue at 2 L per nasal cannula. Oxygen can be weaned off with the help of pulmonology as an outpatient. At discharge the patient will continue with prednisone 20 mg 1 pill twice daily 7 days then 1 pill once daily for 7 days. The patient will also continue with aspirin 81 mg daily and Tessalon Perles 100 mg 3 times a day as needed for cough. The patient will continue with vitamin supplementation including vitamin-C 500 mg 3 times a day, vitamin-D 2000 units daily, zinc 220 mg daily, and thiamine 100 mg 1 pill twice daily. Patient will follow up with pulmonology in 1-2 weeks to follow up this hospitalization. Education on COVID 19 isolation will be provided. Patient will continue with active proning at home, use of incentive spirometer, face mask use, social distancing and hand washing. Recommend follow up with PCP in 1-2 weeks to follow up this hospitalization and to continue his care. Vital Signs/Physical Exam: Temp Pulse Resp BP Pulse Ox 97.6 F 65 23 H 116/73 90 L 02/25/21 08:50 02/25/21 08:50 02/25/21 08:50 02/25/21 08:50 02/25/21 08:50 General: Alert, In no apparent distress, Oriented x3, Cooperative HEENT: Atraumatic Neck: Supple Respiratory: Clear to auscultation bilaterally, Normal air movement Cardiovascular: Normal pulses, Regular rate/rhythm Gastrointestinal: Normal bowel sounds, Soft and benign, Non-distended, No tenderness, No masses, No rebound, No guarding Musculoskeletal: No erythema, No tenderness, No warmth Integumentary: No tenderness/swelling Neurological: Normal speech, Normal strength at 5/5 x4 extr, Normal tone, Normal affect Laboratory Data at Discharge: WBC 2.60 K/uL (4.3-10.9) L 02/24/21 08:20 Hgb 14.8 g/dL (13.6-17.9) 02/24/21 08:20 Hct 43.0 % (39.6-49.0) 02/24/21 08:20 Plt Count 151 K/uL (152-406) L 02/24/21 08:20 Sodium 136 mmol/L (136-145) 02/25/21 04:33 Potassium 4.6 mmol/L (3.5-5.1) 02/25/21 04:33 BUN 21 mg/dL (7-18) H 02/25/21 04:33 Creatinine 0.77 mg/dL (0.55-1.3) 02/25/21 04:33 Glucose 149 mg/dL (74-106) H 02/25/21 04:33 Magnesium 2.4 mg/dL (1.8-2.4) 02/25/21 04:33 Home Medications: Albuterol Inhaler [Ventolin Inhaler*] 2 puff IH Q6H PRN #1 hfa.aer.ad 02/25/21 Ascorbic Acid [Vitamin C*] 500 mg PO TID #90 tablet 02/25/21 Aspirin [Aspirin EC 81 MG] 81 mg PO DAILY #30 tablet. 02/25/21 Benzonatate [Tessalon Perle*] 100 mg PO TID PRN #10 cap 02/25/21 Cholecalciferol (Vitamin D3) [Vitamin D 1000 Iu Tab*] 2,000 unit PO DAILY #60 tab 02/25/21 Famotidine [Pepcid*] 20 mg PO BID #60 tab 02/25/21 Thiamine HCl [Vitamin B-1*] 100 mg PO BID #60 tablet 02/25/21 Zinc Sulfate [Zinc Sulfate*] 220 mg PO DAILY #30 cap 02/25/21 predniSONE [Deltasone] 20 mg PO SEECOM #21 tab 02/25/21 New Medications: Aspirin [Aspirin EC 81 MG] 81 mg PO DAILY #30 tablet. Famotidine [Pepcid*] 20 mg PO BID #60 tab predniSONE [Deltasone] 20 mg PO SEECOM #21 tab Benzonatate [Tessalon Perle*] 100 mg PO TID PRN #10 cap PRN Reason: Cough Albuterol Inhaler [Ventolin Inhaler*] 2 puff IH Q6H PRN #1 hfa.aer.ad PRN Reason: Shortness Of Breath Thiamine HCl [Vitamin B-1*] 100 mg PO BID #60 tablet Ascorbic Acid [Vitamin C*] 500 mg PO TID #90 tablet Cholecalciferol (Vitamin D3) [Vitamin D 1000 Iu Tab*] 2,000 unit PO DAILY #60 tab Zinc Sulfate [Zinc Sulfate*] 220 mg PO DAILY #30 cap Physician Discharge Instructions: Patient presented with Shortness of breath secondary to bilateral COVID 19 pneumonia. Patient was seen earlier this week and tested positive for COVID 19. Patient continue to have shortness of breath and cough. Patient was admitted for observation. The patient has done well with IV steroids and supplemental treatment. Oxygen saturations above 90% on room air. Patient was seen and evaluated by pulmonology. No further intervention was required. At discharge patient able to ambulate appropriately without significant shortness of breath or desaturations. Pulmonology recommends to continue oxygen at home to maintain sats above 93%. Oxygen will be arranged prior to discharge. Patient may continue at 2 L per nasal cannula. Oxygen can be weaned off with the help of pulmonology as an outpatient. At discharge the patient will continue with prednisone 20 mg 1 pill twice daily 7 days then 1 pill once daily for 7 days. The patient will also continue with aspirin 81 mg daily and Tessalon Perles 100 mg 3 times a day as needed for cough. The patient will continue with vitamin supplementation including vitamin-C 500 mg 3 times a day, vitamin-D 2000 units daily, zinc 220 mg daily, and thiamine 100 mg 1 pill twice daily. Patient will follow up with pulmonology in 1-2 weeks to follow up this hospitalization. Education on COVID 19 isolation will be provided. Patient will continue with active proning at home, use of incentive spirometer, face mask use, social distancing and hand washing. Recommend follow up with PCP in 1-2 weeks to follow up this hospitalization and to continue his care. Diet: AHA Activity: Ad felipa Followup: Caden Triana MD [Primary Care Provider] - Time spent managing pt's care (in minutes): 55
[2021-02-25] MEDS ORDERED: VITAMIN D 1000 UNIT TAB PO SCH (09:00)
[2021-02-25] MEDS ORDERED: ZINC SULFATE 220 MG CAP PO SCH (09:00)
--- NOTE | 2021-02-25 10:36 | EKG ---
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
[2021-02-25 11:35] VITALS: O2SAT 91
[2021-02-25 14:42] VITALS: BP 124/87; TEMP 97.5
== END 2021-02-25 15:00 | disposition home or self-care (01) ==
LOC: ER 07:50 → ERHOLD 12:15 → 3RD-ICU 16:44
PROVIDERS: ADMIT Family Medicine; ATTEND Family Medicine
DX: U07.1 COVID-19 (principal); J12.82 Pneumonia due to coronavirus disease 2019; J96.00 Acute respiratory failure, unspecified whether with hypoxia or hypercapnia
CPT/HCPCS: 93005; 87040 ×2; 87088; 85025; 87086; 80048 ×2; 36415; 83735; 85379; 82728 ×2; 84145; 83880; 86140 ×2; 71045; 94010; 96374; 99285; J1650 ×2; J2930 ×4; G0378 ×3; 81003; 81015

== ENCOUNTER 2021-02-26 19:25 | Inpatient (IN) | payer BC ==
[2021-02-26 20:19] LABS: Absolute Lymphocytes (CBC) 0.5 K/uL (0.7-4.9); Basophils % 0.1 % (0-1.3); Lymphocytes % 4.5 % (15.3-44.8); MPV 9.4 fL (7.6-11.3); RBC Red Blood Cell Count 5.11 M/uL (4.33-5.43)
--- NOTE | 2021-02-26 20:26 | RAD REPORT ---
EXAM DESCRIPTION: RAD - Chest Single View - 02/26/2021 8:20 pm CLINICAL HISTORY: SOB Chest pain. COMPARISON: Chest Single View dated 02/24/2021; Chest Single View dated 02/22/2021; Chest Pa And Lat ( 2 Views) dated 08/04/2020; CHEST SINGLE VIEW dated 03/03/2010 FINDINGS: Portable technique limits examination quality. Mild to moderate bilateral pulmonary opacities are present, greatest in the left lower lobe. This is likely related to COVID-19 infection. The heart is normal in size. No displaced fractures.
[2021-02-26 20:28] LABS: Protime INR 1.15
[2021-02-26] MEDS ORDERED: METHYLPREDNISOLONE 125 MG INJ ONE (20:29)
[2021-02-26] MEDS ORDERED: NA CHLORIDE 0.9% 250 ML ONE (20:30)
[2021-02-26] MEDS ORDERED: AZITHROMYCIN 500 MG INJ IVPB ONE (20:30)
[2021-02-26] MEDS ORDERED: ALBUTEROL INHALER 60 PUFF/8 GM IH ONE (20:30)
[2021-02-26 20:45] LABS: ALT/SGPT 79 U/L (12-78); AST/SGOT 54 U/L (15-37); Albumin 3.4 g/dL (3.4-5.0); Alkaline Phosphatase 77 U/L (45-117); BUN Blood Urea Nitrogen 22 mg/dL (7-18); Bicarbonate 27 mmol/L (21-32); Bilirubin Direct 0.2 mg/dL (0-0.2); Bilirubin Total 0.6 mg/dL (0.2-1.0); Glucose Level 112 mg/dL (74-106); Magnesium 2.5 mg/dL (1.8-2.4); NT PRO-BNP 382 pg/mL (<125); Potassium 4.2 mmol/L (3.5-5.1); Protein, Total 7.6 g/dL (6.4-8.2); Sodium Level 137 mmol/L (136-145); Troponin (Emerg Dept Use Only) < 0.02 ng/mL (0.0-0.045)
--- NOTE | 2021-02-26 20:56 | EDPHYS ---
Physician Documentation [facility] Name: Angel Luis Sales Age: 60 yrs Sex: Male : 1960 Arrival Date: 02/26/2021 Time: 19:27 Bed 3 Private MD: ED Physician Dante Higgins HPI: 02/26 19:54 This 60 yrs old Male presents to ER via Wheelchair with complaints of mh7 Breathing Difficulty. 19:54 The patient has shortness of breath at rest, with light activity. Onset: The mh7 symptoms/episode began/occurred 2 day(s) ago. Duration: The symptoms are continuous, and are steadily getting worse. The patient's shortness of breath is aggravated by coughing, exertion, light activity, is alleviated by application of supplemental oxygen. Associated signs and symptoms: Pertinent positives: chest pain, non-productive cough, Pertinent negatives: productive cough, diaphoresis, dizziness, fever, hemoptysis, loss of consciousness, nausea, numbness in extremities, visual changes, vomiting. Severity of symptoms: At their worst the symptoms were moderate today, in the emergency department the symptoms are unchanged. States that he tested positive for COVID 2 days ago but has been coughing for a week. States that he has been having SOB that has increased over the past 2 days. . 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 Flu vaccine is not up to date. - Social history:: Smoking status: Patient denies any tobacco usage or history of. ROS: 19:54 Constitutional: Negative for fever, chills, and weight loss, Eyes: Negative for injury, mh7 pain, redness, and discharge, ENT: Negative for injury, pain, and discharge, Neck: Negative for injury, pain, and swelling, Abdomen/GI: Negative for abdominal pain, nausea, vomiting, diarrhea, and constipation, Back: Negative for injury and pain, : Negative for injury, bleeding, discharge, and swelling, MS/Extremity: Negative for injury and deformity, Skin: Negative for injury, rash, and discoloration, Neuro: Negative for headache, weakness, numbness, tingling, and seizure, Psych: Negative for depression, anxiety, suicide ideation, homicidal ideation, and hallucinations, Allergy/Immunology: Negative for hives, rash, and allergies, Endocrine: Negative for neck swelling, polydipsia, polyuria, polyphagia, and marked weight changes, Hematologic/Lymphatic: Negative for swollen nodes, abnormal bleeding, and unusual bruising. Exam: 19:54 Head/Face: Normocephalic, atraumatic. Eyes: Pupils equal round and reactive to light, mh7 extra-ocular motions intact. Lids and lashes normal. Conjunctiva and sclera are non-icteric and not injected. Cornea within normal limits. Periorbital areas with no swelling, redness, or edema. Neck: Trachea midline, no thyromegaly or masses palpated, and no cervical lymphadenopathy. Supple, full range of motion without nuchal rigidity, or vertebral point tenderness. No Meningismus. Chest/axilla: Normal chest wall appearance and motion. Nontender with no deformity. No lesions are appreciated. Cardiovascular: Regular rate and rhythm with a normal S1 and S2. No gallops, murmurs, or rubs. Normal PMI, no JVD. No pulse deficits. 19:54 Abdomen/GI: Soft, non-tender, with normal bowel sounds. No distension or tympany. No guarding or rebound. No evidence of tenderness throughout. Back: No spinal tenderness. No costovertebral tenderness. Full range of motion. Skin: Warm, dry with normal turgor. Normal color with no rashes, no lesions, and no evidence of cellulitis. MS/ Extremity: Pulses equal, no cyanosis. Neurovascular intact. Full, normal range of motion. Neuro: Awake and alert, GCS 15, oriented to person, place, time, and situation. Cranial nerves II-XII grossly intact. Motor strength 5/5 in all extremities. Sensory grossly intact. Cerebellar exam normal. Normal gait. Psych: Awake, alert, with orientation to person, place and time. Behavior, mood, and affect are within normal limits. 19:54 Constitutional: The patient appears alert, awake, uncomfortable. 19:54 Respiratory: mild respiratory distress is noted, Respirations: tachypnea, that is mild, Breath sounds: decreased breath sounds, that are mild, are scattered, rhonchi, that are mild, are scattered, Respiratory rate: 26 Vital Signs: 19:37 BP 117 / 74; Pulse 99; Resp 26; Temp 97.9(TE); Pulse Ox 96% on Non-rebreather mask; ca1 Weight 79.38 kg (M); Height 5 ft. 6 in. (167.64 cm) (R); Pain 0/10; 21:40 BP 99 / 84; Pulse 94; Resp 36; Temp 98; Pulse Ox 93% on 5 lpm NC; ea 19:37 Body Mass Index 28.25 (79.38 kg, 167.64 cm) ca1 MDM: 20:53 Differential diagnosis: Anemia Anxiety Reaction asthma, Bronchitis CHF exacerbation, mh7 Chronic Obstructive Pulmonary Disease Myocardial Infarction pneumonia, Pneumothorax pulmonary edema. Data reviewed: vital signs, lab test result(s), cardiac enzymes, CBC, electrolytes, EKG, radiologic studies, plain films. Data interpreted: Pulse oximetry: on room air is 96 %. Interpretation: normal. Counseling: I had a detailed discussion with the patient and/or guardian regarding: the historical points, exam findings, and any diagnostic results supporting the discharge/admit diagnosis, lab results, radiology results, the need for further work-up and treatment in the hospital. Response to treatment: the patient's symptoms have mildly improved after treatment. 20:55 Patient medically screened. [facility] 02/26 19:51 Order name: Basic Metabolic Panel [facility] 02/26 19:51 Order name: CBC with Diff [facility] 02/26 19:51 Order name: LFT's [facility] 02/26 19:51 Order name: Magnesium [facility] 02/26 19:51 Order name: NT PRO-BNP [facility] 02/26 19:51 Order name: PT-INR; Complete Time: 20:52 [facility] 02/26 19:51 Order name: Troponin (emerg Dept Use Only); Complete Time: 20:52 [facility] 02/26 19:51 Order name: Blood Culture Adult (2) [facility] 02/26 19:51 Order name: Lactate; Complete Time: 20:52 [facility] 02/26 19:51 Order name: D-Dimer; Complete Time: 20:52 [facility] 02/26 19:52 Order name: Basic Metabolic Panel; Complete Time: 20:52 [facility] 02/26 19:52 Order name: CBC with Automated Diff [facility] 02/26 19:52 Order name: Liver (Hepatic) Function; Complete Time: 20:52 [facility] 02/26 19:52 Order name: Magnesium; Complete Time: 20:52 [facility] 02/26 19:51 Order name: XRAY Chest (1 view); Complete Time: 20:31 [facility] 02/26 19:51 Order name: EKG; Complete Time: 19:52 [facility] 02/26 19:51 Order name: Cardiac monitoring; Complete Time: 20:12 [facility] 02/26 19:51 Order name: EKG - Nurse/Tech; Complete Time: 20:12 [facility] 02/26 19:51 Order name: IV Saline Lock; Complete Time: 20:12 [facility] 02/26 19:51 Order name: Labs collected and sent; Complete Time: 20:12 [facility] 02/26 19:51 Order name: O2 Per Protocol; Complete Time: 20:12 [facility] 02/26 19:51 Order name: O2 Sat Monitoring; Complete Time: 20:12 [facility] 02/26 19:52 Order name: NT PRO-BNP; Complete Time: 20:52 [facility] 02/26 19:52 Order name: Procalcitonin [facility] 02/26 20:35 Order name: CRP [facility] 02/26 21:08 Order name: CBC Smear Scan [facility] Administered Medications: 20:10 Drug: SOLU-Medrol (methylPrednisoLONE) 125 mg Route: IVP; Site: left antecubital; ea 21:30 Follow up: Response: No adverse reaction ea 20:10 Drug: Albuterol HFA Inhaler 2 puffs Route: Inhalation; ea 20:10 Drug: Zithromax (azithromycin) 500 mg Route: IVPB; Infused Over: 1 hrs; Site: left ea antecubital; 21:15 Follow up: Response: No adverse reaction; IV Status: Completed infusion; IV Intake: ea 250ml Disposition: 02/26/21 20:55 Hospitalization ordered by Dell Lacey for Inpatient Admission. Preliminary diagnosis are Coronavirus infection, unspecified, Pneumonia, Hypoxia. - Bed requested for Intensive Care Unit. - Status is Inpatient Admission. ea - Condition is Stable. - Problem is new. - Symptoms have improved. Signatures: Dispatcher [employer] EDMS Trenton Sosa FNP-C INSTRUMENT PERSON-Cla1 Zheng, ANGELICA Daly RN, ea, MyKena mw2 Rupa Ramey RN RN ca1 Holmes, Maurice, MD MD 7 Corrections: (The following items were deleted from the chart) 21:18 20:55 Hospitalization Ordered by Dell Lacey DO for Inpatient Admission. Preliminary mw2 diagnosis is Coronavirus infection, unspecified; Pneumonia, Hypoxia. Bed requested for Telemetry/MedSurg (Inpatient). Status is Inpatient Admission. Condition is Stable. Problem is new. Symptoms have improved. [facility] 21:41 21:18 02/26/2021 20:55 Hospitalization Ordered by Dell Lacey DO for Inpatient ea Admission. Preliminary diagnosis is Coronavirus infection, unspecified; Pneumonia, Hypoxia. Bed requested for Intensive Care Unit. Status is Inpatient Admission. Condition is Stable. Problem is new. Symptoms have improved. mw2
--- NOTE | 2021-02-26 20:56 | ER ---
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 Was ca1 admitted and discharged yesterday. Today SOB worsen, on O2 at home at 3 - 4 LPM. SPO2 goes down to the 70s with exertion. SPO2 on triage 84% - 85% at 4LPM. 19:35 Acuity: JOE 2 ca1 19:37 Coronavirus screen: Client reports previous positive COVID test result. Ebola Screen: ca1 Patient negative for fever greater than or equal to 101.5 degrees Fahrenheit, and additional compatible Ebola Virus Disease symptoms Patient denies exposure to infectious person. Patient denies travel to an Ebola-affected area in the 21 days before illness onset. No symptoms or risks identified at this time. Risk Assessment: Do you want to hurt yourself or someone else? Patient reports no desire to harm self or others. Onset of symptoms was February 25, 2021. 19:37 Method Of Arrival: Wheelchair ca1 19:40 Initial Sepsis Screen: Does the patient meet any 2 criteria? RR > 20 per min. HR > 90 ca1 bpm. Yes Does the patient have a suspected source of infection? Yes: Productive cough/pneumonia. 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 Flu vaccine is not up to date. - Social history:: Smoking status: Patient denies any tobacco usage or history of. Screenin:20 Abuse screen: Denies threats or abuse. Nutritional screening: No deficits noted. ea Tuberculosis screening: No symptoms or risk factors identified. Fall Risk IV access (20 points). Assessment: 19:40 General: Appears uncomfortable, Behavior is cooperative. Pain: Denies pain. Neuro: ea Level of Consciousness is awake, alert, obeys commands, Oriented to person, place, time. Cardiovascular: Patient's skin is warm and dry. Respiratory: Airway is patent Respiratory effort is labored, Respiratory pattern is tachypnea. Derm: Skin is dry, Skin is pale, Skin temperature is warm. 20:00 Reassessment: Patient and/or family updated on plan of care and expected duration. Pain ea level reassessed. Pt remains on O 2 at 4 L per nasal canula tolerating well. Alert oriented x 3. 21:39 Reassessment: Patient and/or family updated on plan of care and expected duration. Pain ea level reassessed. Pt being admitted to [facility] ICU, report given to receiving nurse. Pt left ED via wheelchair per nurse with O2 per nasal cannula, pt tolerating well. Vital Signs: 19:37 BP 117 / 74; Pulse 99; Resp 26; Temp 97.9(TE); Pulse Ox 96% on Non-rebreather mask; ca1 Weight 79.38 kg (M); Height 5 ft. 6 in. (167.64 cm) (R); Pain 0/10; 21:40 BP 99 / 84; Pulse 94; Resp 36; Temp 98; Pulse Ox 93% on 5 lpm NC; ea 19:37 Body Mass Index 28.25 (79.38 kg, 167.64 cm) ca1 ED Course: 19:27 Patient arrived in ED. bp1 19:35 Triage completed. ca1 19:39 Arm band placed on right wrist. ca1 19:43 Dante Higgins MD is Attending Physician. mh7 20:08 Inserted saline lock: 20 gauge in left antecubital area, using aseptic technique. Blood ea collected. 20:11 Malika Zheng, RN is Primary Nurse. ea 20:20 XRAY Chest (1 view) In Process Unspecified. EDMS 20:20 Patient has correct armband on for positive identification. Bed in low position. Call ea light in reach. Side rails up X2. 20:54 Dell Lacey DO is Hospitalizing Provider. 7 21:40 No provider procedures requiring assistance completed. Patient admitted, IV remains in ea place. Administered Medications: 20:10 Drug: SOLU-Medrol (methylPrednisoLONE) 125 mg Route: IVP; Site: left antecubital; ea 21:30 Follow up: Response: No adverse reaction ea 20:10 Drug: Albuterol HFA Inhaler 2 puffs Route: Inhalation; ea 20:10 Drug: Zithromax (azithromycin) 500 mg Route: IVPB; Infused Over: 1 hrs; Site: left ea antecubital; 21:15 Follow up: Response: No adverse reaction; IV Status: Completed infusion; IV Intake: ea 250ml Intake: 21:15 IV: 250ml; Total: 250ml. ea Outcome: 20:55 Decision to Hospitalize by Provider. [facility] 21:41 Admitted to ICU accompanied by nurse, via wheelchair, room 1, with oxygen, with chart, ea Report called to Receiving nurse on third floor 21:41 Condition: stable 21:41 Instructed on the need for admit, Demonstrated understanding of instructions. 21:41 Patient left the ED. ea Signatures: Dispatcher [employer] Malika Garcia RN RN ea Acob, Cheryl, RN RN ca1 [place]ia[place], Brittany bp1 Holmes, Maurice, MD MD [facility]
--- NOTE | 2021-02-26 21:04 | P.HP ---
Certification for Inpatient Patient admitted to: Inpatient With expected LOS: >2 Midnights Patient will require the following post-hospital care: None Practitioner: I am a practitioner with admitting privileges, knowledge of patient current condition, hospital course, and medical plan of care. Services: Services provided to patient in accordance with Admission requirements found in Title 42 Section 412.3 of the Code of Federal Regulations Patient History Date of Service: 02/26/21 Reason for admission: COVID-19 pneumonia History of Present Illness: 60-year-old otherwise healthy male presents emergency department for shortness of breath. Patient tested positive for COVID-19 02/22/2021 and was recently admitted/discharge for shortness of breath related to above. Patient was prescribed home oxygen and has been wearing this at home at 3-4 liters/minute, home patient saturations were in the high 80s and desaturated into the 70s with any minimal exertion. Patient presented to the emergency room for further evaluation, on exam patient noted to be dyspneic, tachypneic. Labs in the emergency department significant for white blood cell count 10.0 D-dimer 536, BUN 22 GFR 79 glucose 112 pro calcitonin negative CRP pending. ED provider wishes to admit for further evaluation and management. Allergies Penicillins Allergy (Mild, Verified 02/24/21 17:59) unknown latex Allergy (Verified 02/24/21 17:59) Rash Home Medications: Albuterol Inhaler [Ventolin Inhaler*] 2 puff IH Q6H PRN #1 hfa.aer.ad 02/25/21 Ascorbic Acid [Vitamin C*] 500 mg PO TID #90 tablet 02/25/21 Aspirin [Aspirin EC 81 MG] 81 mg PO DAILY #30 tablet.dr 02/25/21 Benzonatate [Tessalon Perle*] 100 mg PO TID PRN #10 cap 02/25/21 Cholecalciferol (Vitamin D3) [Vitamin D 1000 Iu Tab*] 2,000 unit PO DAILY #60 tab 02/25/21 Famotidine [Pepcid*] 20 mg PO BID #60 tab 02/25/21 Thiamine HCl [Vitamin B-1*] 100 mg PO BID #60 tablet 02/25/21 Zinc Sulfate [Zinc Sulfate*] 220 mg PO DAILY #30 cap 02/25/21 predniSONE [Deltasone] 20 mg PO SEECOM #21 tab 02/25/21 - Past Medical/Surgical History Diabetic: No -: COVID + 02/22/21 -: Back surgery times 3 -: Shoulder cuff repair Rt -: Knee surgery Rt -: 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 - Social History Alcohol use: No CD- Drugs: No Caffeine use: Yes Place of Residence: Home Review of Systems 10-point ROS is otherwise unremarkable General: Weakness, Malaise Respiratory: Cough, Shortness of Breath Physical Examination - Physical Exam General: Alert, In no apparent distress, Oriented x3 HEENT: Atraumatic, PERRLA, Mucous membr. moist/pink Neck: Supple, 2+ carotid pulse no bruit, No LAD Respiratory: Clear to auscultation bilaterally, Other (Dyspnea, tachypnea) Cardiovascular: Regular rate/rhythm, Normal S1 S2 Gastrointestinal: Normal bowel sounds, No tenderness Musculoskeletal: No tenderness Integumentary: No rashes Neurological: Normal gait, Normal speech, Normal strength at 5/5 x4 extr, Normal tone, Normal affect Lymphatics: No axilla or inguinal lymphadenopathy - Studies Laboratory Data (last 24 hrs) 02/26/21 20:10: PT 13.2 H, INR 1.15 02/26/21 20:01: WBC 10.00 D, Hgb 15.2, Hct 44.0, Plt Count 207 D 02/26/21 20:01: Sodium 137, Potassium 4.2, BUN 22 H, Creatinine 0.97, Glucose 112 H, Magnesium 2.5 H, Total Bilirubin 0.6, AST 54 H, ALT 79 H, Alkaline Phosphatase 77 Assessment and Plan - Plan Assessment Acute hypoxic respiratory failure secondary to COVID-19 pneumonia-failed outpatient therapy with home oxygen/steroids Plan Acute hypoxic respiratory failure secondary to COVID-19 pneumonia-failed outpatient therapy with home oxygen/steroids: Continue with IV steroids, oral supplements, pulmonology consulted will trend daily CRP/ferritin levels, daily room air saturations. Patient currently requiring 4-5 L per nasal cannula to maintain saturations but is still tachypneic/dyspneic. DVT prophylaxis Lovenox 40 mg subcu once daily. Appreciate further input from pulmonology. Discharge Plan: Home Plan to discharge in: Greater than 2 days - Advance Directives Does patient have a Living Will: No Does patient have a Durable POA for Healthcare: No - Code Status/Comfort Care Code Status Assessed: Yes (Full code) Critical Care: No Time Spent Managing Pts Care (In Minutes): 55
[2021-02-26 21:07] LABS: Blood Morphology Comment NOT SEEN (NOT SEEN); Platelet Estimate ADEQ; White Blood Cell Scan OK (OK)
[2021-02-26] MEDS ORDERED: METHYLPREDNISOLONE 40 MG INJ IV SCH (22:17)
[2021-02-26] MEDS ORDERED: ONDANSETRON 4 MG/2 ML VIAL IV PRN (22:17)
[2021-02-26] MEDS ORDERED: ACETAMINOPHEN 500 MG TAB PO PRN (22:17)
[2021-02-26] MEDS ORDERED: BENZONATATE 100 MG CAP PO PRN (22:17)
[2021-02-26 22:28] VITALS: BMI 27.2
[2021-02-26] MEDS: ASCORBIC ACID 500 MG TABLET PO SCH (22:36)
--- NOTE | 2021-02-27 05:55 | P.PN ---
Subjective Date of Service: 02/27/21 Primary Care Provider: Dr. Triana Chief Complaint: COVID-19 pneumonia Subjective: Other (Slight improvement noted. Patient on 5 L per nasal cannula. Patient remains afebrile.) Physical Examination - Vital Signs Temperature: 98 F Blood Pressure: 117/73 Pulse: 82 Respirations: 30 Pulse Ox (%): 92 - Studies Laboratory Data (last 24 hrs) 02/26/21 20:10: PT 13.2 H, INR 1.15 02/26/21 20:01: WBC 10.00 D, Hgb 15.2, Hct 44.0, Plt Count 207 D 02/26/21 20:01: Sodium 137, Potassium 4.2, BUN 22 H, Creatinine 0.97, Glucose 112 H, Magnesium 2.5 H, Total Bilirubin 0.6, AST 54 H, ALT 79 H, Alkaline Phosphatase 77 Assessment & Plan Discharge Plan: Home Plan to discharge in: 48 Hours Physician Review Additional Text: CXR: COMPARISON: Chest Single View dated 02/24/2021; Chest Single View dated 02/22/2021; Chest Pa And Lat (2 Views) dated 08/04/2020; CHEST SINGLE VIEW dated 03/03/2010 FINDINGS: Portable technique limits examination quality. Mild to moderate bilateral pulmonary opacities are present, greatest in the left lower lobe. This is likely related to COVID-19 infection. The heart is normal in size. No displaced fractures. Physical Exam: General: Alert, In no apparent distress, Oriented x3 HEENT: Neck supple Respiratory: Patient currently on 5 L per nasal cannula Cardiovascular: Regular rate/rhythm, Normal S1 S2 Gastrointestinal: Normal bowel sounds, No tenderness Musculoskeletal: No tenderness Integumentary: No rashes Neurological: Normal gait, Normal speech, Normal strength at 5/5 x4 extr, Normal tone, Normal affect Lymphatics: No axilla or inguinal lymphadenopathy Assessment Acute hypoxic respiratory failure secondary to COVID-19 pneumonia-failed outpatient therapy with home oxygen/steroids Plan Acute hypoxic respiratory failure secondary to COVID-19 pneumonia-failed outpatient therapy with home oxygen/steroids: Increase IV steroids. Continue vitamin supplementation. Patient on Lovenox for DVT prophylaxis. Continue to monitor CRP and ferritin. Continue to wean off oxygen. Patient with slight elevation in liver function. Patient likely not a candidate for remdesivir. Will discuss with pulmonology about plan of care. Patient may benefit with Actemra. Recommendations by pulmonology. Continue to monitor closely. Encourage proning, incentive spirometer. Recheck chest x-ray tomorrow. Anticipate improvement over the next 48 to 72 hours. Code Status: Full code DVT Prophylaxis: Lovenox Advanced care planning: DC home at discharge Time Spent Managing Pts Care (In Minutes): 55
[2021-02-27 05:56] LABS: Absolute Lymphocytes (CBC) 0.4 K/uL (0.7-4.9); Basophils % 0.1 % (0-1.3); Hematocrit 40.3 % (39.6-49.0); Lymphocytes % 4.5 % (15.3-44.8); MPV 9.4 fL (7.6-11.3); RBC Red Blood Cell Count 4.66 M/uL (4.33-5.43)
--- NOTE | 2021-02-27 06:57 | EKG ---
Test Date: 2021-02-26 Test Time: 19:58:01 Senior Electronics Engineer: TRAN MEASUREMENT RESULTS: Intervals: Rate: 90 GA: 142 QRSD: 82 QT: 354 QTc: 433 Flasher: P: 56 GA: 142 QRS: -13 T: 61 INTERPRETIVE STATEMENTS: Normal sinus rhythm Possible Left atrial enlargement Borderline ECG Compared to ECG 02/24/2021 08:40:32 No significant changes Electronically Signed On 02-27-21 06:56:16 CDT by Jeysno Latham
[2021-02-27 07:09] LABS: ALT/SGPT 68 U/L (12-78); AST/SGOT 38 U/L (15-37); Albumin 2.9 g/dL (3.4-5.0); Alkaline Phosphatase 68 U/L (45-117); BUN Blood Urea Nitrogen 20 mg/dL (7-18); Bicarbonate 26 mmol/L (21-32); Bilirubin Total 0.5 mg/dL (0.2-1.0); Ferritin 810.5 ng/mL (26-388); Glucose Level 159 mg/dL (74-106); Magnesium 2.5 mg/dL (1.8-2.4); Potassium 4.4 mmol/L (3.5-5.1); Protein, Total 6.7 g/dL (6.4-8.2); Sodium Level 137 mmol/L (136-145)
[2021-02-27] MEDS: THIAMINE HCL 100 MG TABLET PO SCH (07:13)
[2021-02-27] MEDS: METHYLPREDNISOLONE 40 MG INJ IV SCH ×3 (07:13→20:18)
[2021-02-27] MEDS: ASPIRIN EC 81 MG TAB PO SCH (07:13)
[2021-02-27] MEDS: VITAMIN D 1000 UNIT TAB PO SCH (07:13)
[2021-02-27] MEDS: ZINC SULFATE 220 MG CAP PO SCH (07:13)
[2021-02-27] MEDS: ASCORBIC ACID 500 MG TABLET PO SCH ×4 (07:14→20:18)
[2021-02-27] MEDS: ENOXAPARIN 40 MG/0.4 ML SQ SCH (07:14)
[2021-02-27] MEDS ORDERED: METHYLPREDNISOLONE 40 MG INJ IV SCH (09:00)
[2021-02-27 09:01] LABS: Urine Appearance CLEAR (Clear); Urine Bilirubin NEGATIVE (Negative); Urine Blood NEGATIVE (Negative); Urine Color YELLOW (Yellow); Urine Glucose NEGATIVE (Negative); Urine Protein 1+ (Negative); Urine Specific Gravity 1.025 (1.005-1.030); Urine pH 6.5 (5.0-7.0)
[2021-02-27] MEDS: FAMOTIDINE 20 MG TAB PO SCH ×2 (09:25→20:17)
[2021-02-27 10:32] LABS: Urine Microscopic Reflex ORDER UMIC
[2021-02-27 10:46] LABS: Urine Bacteria NONE SEEN /HPF (NONE SEEN); Urine RBC NONE SEEN /HPF (NONE SEEN)
--- NOTE | 2021-02-27 12:05 | P.CNS ---
Date of Consult: 02/27/21 Primary Care Provider: Dr. Triana Chief Complaint: COVID-19 pneumonia History of Present Illness: Patient is 60 years of age admitted yet again with olson virus pneumonia this time is become progressively worse him dyspneic on mild exertion chest x-ray looks worse no other coal with symptoms he is hypoxic was taking prednisone at home Allergies Penicillins Allergy (Mild, Verified 02/24/21 17:59) unknown latex Allergy (Verified 02/24/21 17:59) Rash Home Medications: Albuterol Inhaler [Ventolin Inhaler*] 2 puff IH Q6H PRN #1 hfa.aer.ad 02/25/21 Ascorbic Acid [Vitamin C*] 500 mg PO TID #90 tablet 02/25/21 Aspirin [Aspirin EC 81 MG] 81 mg PO DAILY #30 tablet. 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 - Social History Smoking Status: Never smoker Alcohol use: No CD- Drugs: No Caffeine use: No Place of Residence: Home Review of Systems General: Weakness Respiratory: Shortness of Breath Physical Examination Temp Pulse Resp BP Pulse Ox 97.0 F 76 14 114/73 89 L 02/27/21 11:58 02/27/21 11:58 02/27/21 11:58 02/27/21 11:58 02/27/21 11:58 Laboratory Data (last 24 hrs) 02/26/21 20:10: PT 13.2 H, INR 1.15 02/26/21 20:01: WBC 10.00 D, Hgb 15.2, Hct 44.0, Plt Count 207 D 02/26/21 20:01: Sodium 137, Potassium 4.2, BUN 22 H, Creatinine 0.97, Glucose 112 H, Magnesium 2.5 H, Total Bilirubin 0.6, AST 54 H, ALT 79 H, Alkaline Phosphatase 77 - Problems (1) Acute respiratory failure due to severe acute respiratory syndrome coronavirus 2 (SARS-CoV-2) infection Current Visit: No Status: Acute Plan: Patient is 60 years of age recurrent hospital admission with the olson virus pneumonia chest x-ray looks worse he is eligible for barcitinib ran steroids discuss with the pharmacy
[2021-02-27] MEDS: BARICITINIB 2 MG TABLET PO SCH (12:25)
--- NOTE | 2021-02-28 05:51 | P.PN ---
Subjective Date of Service: 02/28/21 Primary Care Provider: Dr. Triana Chief Complaint: COVID-19 pneumonia Subjective: Improving (Patient currently on 5 L. No labored breathing noted. Some desaturations in supine position.) Physical Examination - Vital Signs Temperature: 97.1 F Blood Pressure: 106/58 Pulse: 61 Respirations: 18 Pulse Ox (%): 89 Assessment & Plan Discharge Plan: Home Plan to discharge in: 48 Hours Physician Review Additional Text: CXR: COMPARISON: Chest Single View dated 02/24/2021; Chest Single View dated 02/22/2021; Chest Pa And Lat (2 Views) dated 08/04/2020; CHEST SINGLE VIEW dated 03/03/2010 FINDINGS: Portable technique limits examination quality. Mild to moderate bilateral pulmonary opacities are present, greatest in the left lower lobe. This is likely related to COVID-19 infection. The heart is normal in size. No displaced fractures. Physical Exam: General: Alert, In no apparent distress, Oriented x3 HEENT: Neck supple Respiratory: Patient currently on 5 L per nasal cannula Cardiovascular: Regular rate/rhythm, Normal S1 S2 Gastrointestinal: Normal bowel sounds, No tenderness Musculoskeletal: No tenderness Integumentary: No rashes Neurological: Normal gait, Normal speech, Normal strength at 5/5 x4 extr, Normal tone, Normal affect Lymphatics: No axilla or inguinal lymphadenopathy Assessment Acute hypoxic respiratory failure secondary to COVID-19 pneumonia-failed outpatient therapy with home oxygen/steroids Plan Acute hypoxic respiratory failure secondary to COVID-19 pneumonia-failed outpatient therapy with home oxygen/steroids: Patient slowly improving. Continue IV steroids. Continue vitamin supplementation. Patient started on IV baricitinib. DVT prophylaxis in place. CRP shows improvement. Ferritin slightly elevated from yesterday. Continue to wean off oxygen. Recheck chest x-ray today. Encourage proning, incentive spirometer. Encourage ambulation. Anticipate continued improvement over the next 48 hours. Will likely go home on oxygen. We will continue to monitor closely. I will turn the service over to the hospitalist team tomorrow. I will go over the plan of care with him. Code Status: Full code DVT Prophylaxis: Lovenox Advanced care planning: DC home at discharge Time Spent Managing Pts Care (In Minutes): 55
[2021-02-28 05:59] LABS: Absolute Lymphocytes (CBC) 0.4 K/uL (0.7-4.9); Basophils % 0.1 % (0-1.3); Hematocrit 41.3 % (39.6-49.0); Lymphocytes % 3.1 % (15.3-44.8); MPV 9.8 fL (7.6-11.3); RBC Red Blood Cell Count 4.74 M/uL (4.33-5.43)
[2021-02-28 07:07] LABS: ALT/SGPT 79 U/L (12-78); AST/SGOT 39 U/L (15-37); Albumin 2.6 g/dL (3.4-5.0); Alkaline Phosphatase 72 U/L (45-117); BUN Blood Urea Nitrogen 24 mg/dL (7-18); Bicarbonate 27 mmol/L (21-32); Bilirubin Total 0.4 mg/dL (0.2-1.0); Ferritin 937.9 ng/mL (26-388); Glucose Level 157 mg/dL (74-106); Magnesium 2.6 mg/dL (1.8-2.4); Potassium 4.8 mmol/L (3.5-5.1); Protein, Total 6.6 g/dL (6.4-8.2); Sodium Level 139 mmol/L (136-145)
[2021-02-28] MEDS: ENOXAPARIN 40 MG/0.4 ML SQ SCH (07:24)
[2021-02-28] MEDS: FAMOTIDINE 20 MG TAB PO SCH ×2 (07:24→20:25)
[2021-02-28] MEDS: ASCORBIC ACID 500 MG TABLET PO SCH ×4 (07:24→20:26)
[2021-02-28] MEDS: ASPIRIN EC 81 MG TAB PO SCH (07:24)
[2021-02-28] MEDS: VITAMIN D 1000 UNIT TAB PO SCH (07:24)
[2021-02-28] MEDS: ZINC SULFATE 220 MG CAP PO SCH (07:24)
[2021-02-28] MEDS: THIAMINE HCL 100 MG TABLET PO SCH (07:24)
[2021-02-28] MEDS: METHYLPREDNISOLONE 40 MG INJ IV SCH ×3 (07:25→20:25)
[2021-02-28] MEDS: BARICITINIB 2 MG TABLET PO SCH (08:10)
--- NOTE | 2021-02-28 12:05 | RAD REPORT ---
EXAM DESCRIPTION: Samantha Single View02/28/2021 7:00 am CLINICAL HISTORY: Chest pain COMPARISON: February 26, 2021 FINDINGS: Mild improvement in left and no significant change right pulmonary opacities Heart is normal size IMPRESSION: Mild improvement in the left and no significant change in the right pulmonary opacities likely pneumonia
[2021-03-01 04:43] LABS: Absolute Lymphocytes (CBC) 0.3 K/uL (0.7-4.9); Basophils % 0.3 % (0-1.3); Hematocrit 39.8 % (39.6-49.0); Lymphocytes % 2.1 % (15.3-44.8); MPV 9.6 fL (7.6-11.3); RBC Red Blood Cell Count 4.63 M/uL (4.33-5.43)
[2021-03-01 05:16] LABS: ALT/SGPT 75 U/L (12-78); AST/SGOT 30 U/L (15-37); Albumin 2.6 g/dL (3.4-5.0); Alkaline Phosphatase 70 U/L (45-117); BUN Blood Urea Nitrogen 26 mg/dL (7-18); Bicarbonate 27 mmol/L (21-32); Bilirubin Total 0.5 mg/dL (0.2-1.0); Ferritin 982.1 ng/mL (26-388); Glucose Level 145 mg/dL (74-106); Magnesium 2.6 mg/dL (1.8-2.4); Potassium 4.6 mmol/L (3.5-5.1); Protein, Total 6.3 g/dL (6.4-8.2); Sodium Level 138 mmol/L (136-145)
[2021-03-01] MEDS: ZINC SULFATE 220 MG CAP PO SCH (08:40)
--- NOTE | 2021-03-01 08:40 | P.PN ---
Subjective Date of Service: 03/01/21 Primary Care Provider: Dr. Triana Chief Complaint: COVID-19 pneumonia Subjective: Worsening (He still continues to remain very hypoxic short of breath requiring high concentrations of oxygen) Review of Systems General: Weakness Respiratory: Shortness of Breath Physical Examination - Vital Signs Temperature: 97.2 F Blood Pressure: 118/68 Pulse: 57 Respirations: 18 Pulse Ox (%): 90 Assessment & Plan - Problems (Diagnosis) (1) Acute respiratory failure due to severe acute respiratory syndrome coronavirus 2 (SARS-CoV-2) infection Current Visit: No Status: Acute Plan: Patient admitted with respiratory failure secondary to olson virus vital signs are stable change to BiPAP alternating with high-flow labs reviewed Cw Barcitinib and high-dose steroids low-dose anticoagulation with Xarelto
[2021-03-01] MEDS: ASCORBIC ACID 500 MG TABLET PO SCH ×4 (08:41→20:21)
[2021-03-01] MEDS: FAMOTIDINE 20 MG TAB PO SCH ×2 (08:41→20:21)
[2021-03-01] MEDS: THIAMINE HCL 100 MG TABLET PO SCH (08:41)
[2021-03-01] MEDS: ASPIRIN EC 81 MG TAB PO SCH (08:41)
[2021-03-01] MEDS: VITAMIN D 1000 UNIT TAB PO SCH (08:41)
[2021-03-01] MEDS: METHYLPREDNISOLONE 40 MG INJ IV SCH ×3 (08:41→20:21)
[2021-03-01] MEDS: RIVAROXABAN 10 MG TABLET PO SCH ×2 (08:42→21:22)
[2021-03-01] MEDS: BARICITINIB 2 MG TABLET PO SCH (08:43)
[2021-03-01] MEDS: IVERMECTIN 3 MG TABLET PO SCH (09:27)
[2021-03-01] MEDS: MELATONIN 5 MG TABLET PO PRN (20:41)
[2021-03-02 05:05] LABS: Absolute Lymphocytes (CBC) 0.3 K/uL (0.7-4.9); Basophils % 0.1 % (0-1.3); Lymphocytes % 2.5 % (15.3-44.8); MPV 9.7 fL (7.6-11.3); RBC Red Blood Cell Count 4.65 M/uL (4.33-5.43)
[2021-03-02 05:30] LABS: ALT/SGPT 93 U/L (12-78); AST/SGOT 35 U/L (15-37); Albumin 2.4 g/dL (3.4-5.0); Alkaline Phosphatase 73 U/L (45-117); BUN Blood Urea Nitrogen 28 mg/dL (7-18); Bicarbonate 27 mmol/L (21-32); Bilirubin Total 0.5 mg/dL (0.2-1.0); Ferritin 1170.6 ng/mL (26-388); Glucose Level 153 mg/dL (74-106); Potassium 4.9 mmol/L (3.5-5.1); Protein, Total 6.2 g/dL (6.4-8.2); Sodium Level 136 mmol/L (136-145)
[2021-03-02 05:38] LABS: Platelet Estimate ADEQ
--- NOTE | 2021-03-02 05:38 | P.PN ---
Subjective Date of Service: 03/01/21 Patient with no significant changes. Remains on high-flow oxygen at 75%. Maintaining his oxygen saturations in the 90s. Currently on baracitinib & steroids. Management per Pulmonary. Review of Systems 10-point ROS is otherwise unremarkable Physical Examination - Vital Signs Temperature: 97.5 F Blood Pressure: 121/56 Pulse: 60 Respirations: 26 Pulse Ox (%): 97 - Physical Exam General: Alert, In no apparent distress HEENT: Atraumatic, PERRLA, EOMI Neck: Supple, JVD not distended Cardiovascular: Regular rate/rhythm, Normal S1 S2 Gastrointestinal: Normal bowel sounds, No tenderness Musculoskeletal: No tenderness Integumentary: No rashes Neurological: Normal speech, Normal tone, Normal affect Lymphatics: No axilla or inguinal lymphadenopathy - Studies Medications List Reviewed: Yes Assessment & Plan - Problems (Diagnosis) (1) Acute respiratory failure due to severe acute respiratory syndrome coronavirus 2 (SARS-CoV-2) infection Current Visit: No Status: Acute - Plan 1. Continue with IV steroids & baracitinib 2. Monitor inflammatory markers 3. Repeat chest x-ray is symptoms are progressively worsening 4. O2 per protocol 5. Management per Pulmonary 6. Continue with albuterol inhaler therapy; also supportive care 7. Holding off on antiviral therapy 8. GI and DVT prophylaxis Discharge Plan: Home Plan to discharge in: Greater than 2 days - Advance Directives Does patient have a Living Will: No Does patient have a Durable POA for Healthcare: No - Code Status/Comfort Care Code Status Assessed: Yes Code Status: Full Code Critical Care: Yes Time Spent Managing PTS Care (In Minutes): 30
[2021-03-02 05:39] LABS: Blood Morphology Comment NOT SEEN (NOT SEEN)
[2021-03-02] MEDS: VITAMIN D 1000 UNIT TAB PO SCH (08:03)
[2021-03-02] MEDS: RIVAROXABAN 10 MG TABLET PO SCH ×2 (08:03→19:21)
[2021-03-02] MEDS: BARICITINIB 2 MG TABLET PO SCH (08:03)
[2021-03-02] MEDS: FAMOTIDINE 20 MG TAB PO SCH ×2 (08:04→19:21)
[2021-03-02] MEDS: ASPIRIN EC 81 MG TAB PO SCH (08:04)
[2021-03-02] MEDS: ZINC SULFATE 220 MG CAP PO SCH (08:04)
[2021-03-02] MEDS: THIAMINE HCL 100 MG TABLET PO SCH (08:04)
[2021-03-02] MEDS: ASCORBIC ACID 500 MG TABLET PO SCH ×4 (08:04→19:21)
[2021-03-02] MEDS: METHYLPREDNISOLONE 40 MG INJ IV SCH ×3 (08:05→19:21)
--- NOTE | 2021-03-02 12:37 | P.PN ---
Subjective Date of Service: 03/02/21 Primary Care Provider: Dr. Triana Chief Complaint: Respiratory failure Patient is not doing well still very hypoxic short of breath Review of Systems General: Weakness Respiratory: Shortness of Breath Physical Examination - Vital Signs Temperature: 97.5 F Blood Pressure: 121/56 Pulse: 60 Respirations: 26 Pulse Ox (%): 97 - Studies Medications List Reviewed: Yes Assessment & Plan - Problems (Diagnosis) (1) Acute respiratory failure due to severe acute respiratory syndrome coronavirus 2 (SARS-CoV-2) infection Current Visit: No Status: Acute Plan: Respiratory failure patient is still requiring over 80% FiO2 desat on minimal activity patient is on steroids and Barcitinib low-dose of diuretics in in negative fluid balance
[2021-03-02] MEDS: SPIRONOLACTONE 25 MG TABLET PO SCH (13:38)
[2021-03-02] MEDS: MELATONIN 5 MG TABLET PO PRN (19:21)
[2021-03-03] MEDS: ASPIRIN EC 81 MG TAB PO SCH (08:20)
[2021-03-03] MEDS: RIVAROXABAN 10 MG TABLET PO SCH ×2 (08:20→19:07)
[2021-03-03] MEDS: ASCORBIC ACID 500 MG TABLET PO SCH ×4 (08:20→19:07)
[2021-03-03] MEDS: ZINC SULFATE 220 MG CAP PO SCH (08:20)
[2021-03-03] MEDS: VITAMIN D 1000 UNIT TAB PO SCH (08:20)
[2021-03-03] MEDS: THIAMINE HCL 100 MG TABLET PO SCH (08:20)
[2021-03-03] MEDS: SPIRONOLACTONE 25 MG TABLET PO SCH (08:20)
[2021-03-03] MEDS: FAMOTIDINE 20 MG TAB PO SCH ×2 (08:21→19:07)
[2021-03-03] MEDS: METHYLPREDNISOLONE 40 MG INJ IV SCH ×3 (08:21→19:07)
[2021-03-03] MEDS: BARICITINIB 2 MG TABLET PO SCH (08:21)
[2021-03-03] MEDS: IVERMECTIN 3 MG TABLET PO SCH (08:22)
--- NOTE | 2021-03-03 10:02 | P.PN ---
Date of Service: 03/02/21 Subjective Patient's oxygen requirements are still has 60%. Continuing continue to taper it down. Review of Systems 10-point ROS is otherwise unremarkable Physical Examination - Vital Signs reviewed - Physical Exam General: Alert, In no apparent distress Cardiovascular: Regular rate/rhythm, Normal S1 S2 Lung:Clear bilaterally Gastrointestinal: Normal bowel sounds, No tenderness Neurological: Normal speech, Normal tone, Normal affect Assessment & Plan - Problems (Diagnosis) (1) Acute respiratory failure due to severe acute respiratory syndrome coronavirus 2 (SARS-CoV-2) infection Current Visit: No Status: Acute - Plan 1. Continue with IV steroids & baracitinib 2. Monitor inflammatory markers 3. Repeat chest x-ray as needed 4. O2 per protocol 5. Management per Pulmonary 6. Continue with albuterol inhaler therapy; also supportive care 7. Holding off on antiviral therapy 8. GI and DVT prophylaxis
--- NOTE | 2021-03-03 10:06 | P.PN ---
Date of Service: 03/03/21 Subjective Patient's oxygen requirements are stable. Continuing continue to taper it down. Review of Systems 10-point ROS is otherwise unremarkable Physical Examination - Vital Signs reviewed - Physical Exam General: Alert, In no apparent distress Cardiovascular: Regular rate/rhythm, Normal S1 S2 Lung: basilar crackles Gastrointestinal: Normal bowel sounds, No tenderness Neurological: Normal speech, Normal tone, Normal affect Assessment & Plan - Problems (Diagnosis) (1) Acute respiratory failure due to severe acute respiratory syndrome coronavirus 2 (SARS-CoV-2) infection Current Visit: No Status: Acute - Plan Continue w/ POC 1. Continue with IV steroids & baracitinib 2. Monitor inflammatory markers 3. Repeat chest x-ray as needed 4. O2 per protocol 5. Management per Pulmonary 6. Continue with albuterol inhaler therapy; also supportive care 7. Holding off on antiviral therapy 8. GI and DVT prophylaxis
--- NOTE | 2021-03-03 11:36 | P.PN ---
Subjective Date of Service: 03/03/21 Primary Care Provider: Dr. Triana Chief Complaint: Respiratory failure Patient is improving feeling better oxygen requirements are declining Review of Systems General: Weakness Respiratory: Shortness of Breath Physical Examination - Vital Signs Temperature: 97 F Blood Pressure: 95/60 Pulse: 68 Respirations: 87 Pulse Ox (%): 90 - Studies Medications List Reviewed: Yes Assessment & Plan - Problems (Diagnosis) (1) Acute respiratory failure due to severe acute respiratory syndrome coronavirus 2 (SARS-CoV-2) infection Current Visit: No Status: Acute Plan: Respiratory failure currently on 60% FiO2 oxygen requirements are declining continue with present doses of steroids Dc spironolactone reduce dose of Solu- Medrol to 40 IV t.i.d.
[2021-03-04 06:07] LABS: Absolute Lymphocytes (CBC) 0.4 K/uL (0.7-4.9); Basophils % 0.1 % (0-1.3); Hematocrit 42.5 % (39.6-49.0); Lymphocytes % 3.3 % (15.3-44.8); MPV 9.8 fL (7.6-11.3); RBC Red Blood Cell Count 4.95 M/uL (4.33-5.43)
[2021-03-04 06:28] LABS: ALT/SGPT 102 U/L (12-78); AST/SGOT 24 U/L (15-37); Albumin 2.7 g/dL (3.4-5.0); Alkaline Phosphatase 73 U/L (45-117); BUN Blood Urea Nitrogen 27 mg/dL (7-18); Bicarbonate 28 mmol/L (21-32); Bilirubin Total 0.6 mg/dL (0.2-1.0); C-Reactive Protein 5.62 mg/L (<3.00); Ferritin 931.4 ng/mL (26-388); Glucose Level 105 mg/dL (74-106); Magnesium 2.4 mg/dL (1.8-2.4); NT PRO-BNP 256 pg/mL (<125); Potassium 4.4 mmol/L (3.5-5.1); Protein, Total 6.3 g/dL (6.4-8.2); Sodium Level 135 mmol/L (136-145)
[2021-03-04] MEDS: VITAMIN D 1000 UNIT TAB PO SCH (07:55)
[2021-03-04] MEDS: ZINC SULFATE 220 MG CAP PO SCH (07:56)
[2021-03-04] MEDS: METHYLPREDNISOLONE 40 MG INJ IV SCH ×3 (07:56→19:09)
[2021-03-04] MEDS: ASPIRIN EC 81 MG TAB PO SCH (07:56)
[2021-03-04] MEDS: RIVAROXABAN 10 MG TABLET PO SCH ×2 (07:56→19:09)
[2021-03-04] MEDS: FAMOTIDINE 20 MG TAB PO SCH ×2 (07:56→19:09)
[2021-03-04] MEDS: ASCORBIC ACID 500 MG TABLET PO SCH ×4 (07:56→19:09)
[2021-03-04] MEDS: THIAMINE HCL 100 MG TABLET PO SCH (07:56)
[2021-03-04] MEDS: BARICITINIB 2 MG TABLET PO SCH (07:58)
--- NOTE | 2021-03-04 08:35 | P.PN ---
Subjective Date of Service: 03/04/21 Primary Care Provider: Dr. Triana Chief Complaint: Respiratory failure Improving oxygen requirements are declining still has desat on mild exertion Review of Systems General: Weakness Respiratory: Shortness of Breath Physical Examination - Vital Signs Temperature: 96.8 F Blood Pressure: 105/83 Pulse: 57 Respirations: 30 Pulse Ox (%): 91 - Studies Microbiology Data (last 24 hrs): 02/26/21 20:10 Blood - Blood Aerobic Blood Culture - Final No growth in 5 days. 02/26/21 20:10 Blood - Blood Anaerobic Blood Culture - Final No growth in 5 days. 02/26/21 20:01 Blood - Blood Aerobic Blood Culture - Final No growth in 5 days. 02/26/21 20:01 Blood - Blood Anaerobic Blood Culture - Final No growth in 5 days. Medications List Reviewed: Yes Assessment & Plan - Problems (Diagnosis) (1) Acute respiratory failure due to severe acute respiratory syndrome coronavirus 2 (SARS-CoV-2) infection Current Visit: No Status: Acute Plan: Respiratory failure patient is improving will change him over to nasal cannula oxygen setup for home O2 sat above 90% on 4 L plan to discharge on prednisone 20 b.i.d. for 10 days including anticoagulation and low-dose aspirin for with me in 2 weeks Physician Review Additional Text: CXR: COMPARISON: Chest Single View dated 02/24/2021; Chest Single View dated 02/22/2021; Chest Pa And Lat (2 Views) dated 08/04/2020; CHEST SINGLE VIEW dated 03/03/2010 FINDINGS: Portable technique limits examination quality. Mild to moderate bilateral pulmonary opacities are present, greatest in the left lower lobe. This is likely related to COVID-19 infection. The heart is normal in size. No displaced fractures. Physical Exam: General: Alert, In no apparent distress, Oriented x3 HEENT: Neck supple Respiratory: Patient currently on 5 L per nasal cannula Cardiovascular: Regular rate/rhythm, Normal S1 S2 Gastrointestinal: Normal bowel sounds, No tenderness Musculoskeletal: No tenderness Integumentary: No rashes Neurological: Normal gait, Normal speech, Normal strength at 5/5 x4 extr, Normal tone, Normal affect Lymphatics: No axilla or inguinal lymphadenopathy Assessment Acute hypoxic respiratory failure secondary to COVID-19 pneumonia-failed outpatient therapy with home oxygen/steroids Plan Acute hypoxic respiratory failure secondary to COVID-19 pneumonia-failed outpatient therapy with home oxygen/steroids: Patient slowly improving. Continue IV steroids. Continue vitamin supplementation. Patient started on IV baricitinib. DVT prophylaxis in place. CRP shows improvement. Ferritin slightly elevated from yesterday. Continue to wean off oxygen. Recheck chest x-ray today. Encourage proning, incentive spirometer. Encourage ambulation. Anticipate continued improvement over the next 48 hours. Will likely go home on oxygen. We will continue to monitor closely. I will turn the service over to the hospitalist team tomorrow. I will go over the plan of care with him. Code Status: Full code DVT Prophylaxis: Lovenox Advanced care planning: DC home at discharge
[2021-03-05] MEDS: ZINC SULFATE 220 MG CAP PO SCH (07:01)
[2021-03-05] MEDS: RIVAROXABAN 10 MG TABLET PO SCH (07:01)
[2021-03-05] MEDS: THIAMINE HCL 100 MG TABLET PO SCH (07:01)
[2021-03-05] MEDS: VITAMIN D 1000 UNIT TAB PO SCH (07:01)
[2021-03-05] MEDS: FAMOTIDINE 20 MG TAB PO SCH (07:02)
[2021-03-05] MEDS: BARICITINIB 2 MG TABLET PO SCH (07:02)
[2021-03-05] MEDS: ASPIRIN EC 81 MG TAB PO SCH (07:02)
[2021-03-05] MEDS: METHYLPREDNISOLONE 40 MG INJ IV SCH ×2 (07:02→13:00)
[2021-03-05] MEDS: ASCORBIC ACID 500 MG TABLET PO SCH ×2 (07:04→12:01)
--- NOTE | 2021-03-05 10:50 | P.PN ---
Date of Service: 03/04/21 Subjective Patient's oxygen requirements are stable. Anticipate DC in AM Review of Systems 10-point ROS is otherwise unremarkable Physical Examination - Vital Signs reviewed - Physical Exam General: Alert, In no apparent distress Cardiovascular: Regular rate/rhythm, Normal S1 S2 Lung: basilar crackles Gastrointestinal: Normal bowel sounds, No tenderness Neurological: Normal speech, Normal tone, Normal affect Assessment & Plan - Problems (Diagnosis) (1) Acute respiratory failure due to severe acute respiratory syndrome coronavirus 2 (SARS-CoV-2) infection Current Visit: No Status: Acute - Plan Continue w/ POC 1. Continue with IV steroids & baracitinib 2. Monitor inflammatory markers 3. Repeat chest x-ray as needed 4. O2 per protocol 5. Management per Pulmonary 6. Continue with albuterol inhaler therapy; also supportive care 7. Holding off on antiviral therapy 8. GI and DVT prophylaxis
[2021-03-05 13:23] VITALS: BP 112/67; TEMP 96.9
[2021-03-05 15:20] VITALS: O2SAT 95
[2021-03-05] MEDS ORDERED: ENSURE HIGH PROTEIN 237 ML CAN PO SCH (21:00)
--- NOTE | 2021-03-08 05:12 | P.DS ---
Discharge Date: 03/05/21 Primary Care Provider: Dr. Triana Disposition: ROUTINE DISCHARGE Discharge Condition: GOOD Reason for Admission: Respiratory failure Consultations: Pulmonary - Problems (1) Acute respiratory failure due to severe acute respiratory syndrome coronavirus 2 (SARS-CoV-2) infection Status: Acute Brief History of Present Illness: 60-year-old otherwise healthy male presents emergency department for shortness of breath. Patient tested positive for COVID-19 02/22/2021 and was recently admitted/discharge for shortness of breath related to above. Patient was prescribed home oxygen and has been wearing this at home at 3-4 liters/minute, home patient saturations were in the high 80s and desaturated into the 70s with any minimal exertion. Patient presented to the emergency room for further evaluation, on exam patient noted to be dyspneic, tachypneic. Labs in the emergency department significant for white blood cell count 10.0 D-dimer 536, BUN 22 GFR 79 glucose 112 pro calcitonin negative CRP pending. ED provider wishes to admit for further evaluation and management. Hospital Course: Patient has done well during hospital stay. Patient will be sent home with home oxygen. Patient will continue with tapering dose of steroids. At this time, patient is stable for discharge home. Patient will follow with Pulmonary in 1-2 weeks. Return to the emergency room if symptoms worsen. Vital Signs/Physical Exam: Temp Pulse Resp BP Pulse Ox 96.9 F 86 19 112/67 93 03/05/21 12:00 03/05/21 12:00 03/05/21 12:00 03/05/21 12:00 03/05/21 12:00 General: Alert, In no apparent distress, Oriented x3 Laboratory Data at Discharge: WBC 13.30 K/uL (4.3-10.9) H D 03/04/21 05:50 Hgb 14.6 g/dL (13.6-17.9) 03/04/21 05:50 Hct 42.5 % (39.6-49.0) 03/04/21 05:50 Plt Count 337 K/uL (152-406) D 03/04/21 05:50 PT 13.2 SECONDS (9.5-12.5) H 02/26/21 20:10 INR 1.15 02/26/21 20:10 Sodium 135 mmol/L (136-145) L 03/04/21 05:50 Potassium 4.4 mmol/L (3.5-5.1) 03/04/21 05:50 BUN 27 mg/dL (7-18) H 03/04/21 05:50 Creatinine 0.74 mg/dL (0.55-1.3) 03/04/21 05:50 Glucose 105 mg/dL (74-106) 03/04/21 05:50 Magnesium 2.4 mg/dL (1.8-2.4) 03/04/21 05:50 Total Bilirubin 0.6 mg/dL (0.2-1.0) 03/04/21 05:50 AST 24 U/L (15-37) 03/04/21 05:50 ALT 102 U/L (12-78) H 03/04/21 05:50 Alkaline Phosphatase 73 U/L (45-117) 03/04/21 05:50 Home Medications: Albuterol Inhaler [Ventolin Inhaler*] 2 puff IH Q6H PRN #1 hfa.aer.ad 02/25/21 Ascorbic Acid [Vitamin C*] 500 mg PO TID #90 tablet 02/25/21 Aspirin [Aspirin EC 81 MG] 81 mg PO DAILY #30 tablet. 02/25/21 Benzonatate [Tessalon Perle*] 100 mg PO TID PRN #10 cap 02/25/21 Cholecalciferol (Vitamin D3) [Vitamin D 1000 Iu Tab*] 2,000 unit PO DAILY #60 tab 02/25/21 Famotidine [Pepcid*] 20 mg PO BID #60 tab 02/25/21 Thiamine HCl [Vitamin B-1*] 100 mg PO BID #60 tablet 02/25/21 Zinc Sulfate [Zinc Sulfate*] 220 mg PO DAILY #30 cap 02/25/21 Melatonin 5 mg PO BEDTIME PRN PRN #20 tablet 03/05/21 Rivaroxaban [Xarelto*] 10 mg PO DAILY #20 tablet 03/05/21 predniSONE [Prednisone*] 20 mg PO SEECOM #21 tab 03/05/21 New Medications: Melatonin 5 mg PO BEDTIME PRN PRN #20 tablet PRN Reason: Insomnia predniSONE [Prednisone*] 20 mg PO SEECOM #21 tab Rivaroxaban [Xarelto*] 10 mg PO DAILY #20 tablet Physician Discharge Instructions: OK TO DC IV AND DC HOME FOLLOW-UP WITH PCP IN 1-2 WEEKS RETURN TO THE ER IF SYMPTOMS WORSENS FOLLOW-UP WITH PULMONARY IN 1-2 WEEKS CALL ME AT [phone] IF ANY QUESTIONS REGARDING HOSPITAL STAY Diet: AHA Activity: Fall precautions Followup: Paddy Terry MD [ACTIVE - CAN ADMIT] - 1-2 Weeks Caden Triana MD [Primary Care Provider] - 1-2 Weeks Time spent managing pt's care (in minutes): 35
== END 2021-03-05 16:00 | disposition home or self-care (01) | DRG 177 ==
LOC: ER 19:25 → ERHOLD 20:33 → 3RD-ICU 21:31
PROVIDERS: ADMIT Family Medicine; ATTEND Family Medicine
PROC: 5A09357 Assistance with Respiratory Ventilation, Less than 24 Consecutive Hours, Continuous Positive Airway Pressure (ICD-10-PCS; principal; 2021-02-26)
DX: U07.1 COVID-19 (principal); J12.82 Pneumonia due to coronavirus disease 2019; J96.01 Acute respiratory failure with hypoxia; Z99.81 Dependence on supplemental oxygen; Z88.0 Allergy status to penicillin; Z91.040 Latex allergy status
CPT/HCPCS: 36415; 71045; 80048; 80053; 80076; 81003; 81015; 82728; 83605; 83735; 83880; 84145; 84484; 85025; 85379; 85610; 86140; 87040; 93005; 94002; 94003; 94010; 94660; 96365; 96375; 99285; J0456; J1650; J2920; J2930; J7050

== ENCOUNTER 2023-05-01 10:44 | Observation (INO) | payer BC ==
--- OUTSIDE RECORDS SUMMARY | 2023-05-01 10:50 | XMS REPORT | Continuity of Care Document ---
:1960 Author Organization [facility] t Address [address] [place] [address] [address] [place] [address] Care Team Providers Name Role Phone Tati KAMARA, Caden Primary Care Physician [phone] Problems Condition Condition Condition Status Onset Resolution Last Treating Co mments Source Name Details Category Date Date Treatment Clinician Date No known No known Disease Metho di active active st problems problems Hospit a l Allergies, Adverse Reactions, Alerts Allergy Allergy Status Severity Reaction(s) Onset Inactive Treating Comm ents Source Name Type Date Date Clinician Penicill Propensi Active Method i in ty to 10-17 st adverse 00:00: Hospita reaction 00 l s to drug Family History Family Member Diagnosis Comments Start Date Stop Date Source Natural father Cancer [facility] Natural mother Cancer [facility] Natural sister Cancer [facility] Social History Social Habit Start Date Stop Date Quantity Comments Source History SDOH [facility] Alcohol Binge Hospital History SDOH [facility] Alcohol Frequency Hospita l History SDWI [facility] Alcohol Std Drinks Hospit al Gender identity [facility] Sexual orientation [facility] Alcohol intake 2017-12-05 2017-12-05 Current drinker [facility] 00:00:00 00:00:00 of alcohol Hospital (finding) Tobacco use and 2017-10-17 2017-10-17 Smokeless Taoist exposure 00:00:00 00:00:00 tobacco non-user Hospital Alcohol Comment 2017-10-17 2017-10-17 social [facility] 00:00:00 00:00:00 Hospital History of Social 2017-10-17 2017-10-[address] function 00:00:00 00:00:00 Hospital Sex Ass[birth year] At [birth year] [facility] 00:00:00 00:00:00 Hospital Smoking Status Start Date Stop Date Source Never smoked tobacco [facility] Medications Ordered Filled Start Stop Current Ordering Indication Dosage Frequency Signature Comments Components Source Medication Medication Date Date Medication? Clinician (SIG) Name Name etodolac 2018 Yes TK 1 T PO Meth danika (LODINE) 3-[address] 500 MG 00:00: Hospita tablet 00 l etodolac 2018-0 Yes TK 1 T PO Meth danika (LODINE) 3-[address] 500 MG 00:00: Hospita tablet 00 l acetaminoph 2018-0 Yes TK 1 T PO M ethodi en-codeine 2-[address] Q [address] (TYLENOL 00:00: Hospita WITH 00 l CODEINE #3) 300-30 mg per tablet methylPREDN 2018-0 Yes TK UTD ON M ethodi ISolone 2-[address] (MEDROL 00:00: Hospita DOSEPAK) 4 00 l mg tablet acetaminoph 2018- Yes TK 1 T PO M ethodi en-codeine 2-13 Q [address] (TYLENOL 00:00: Hospita WITH 00 l CODEINE #3) 300-30 mg per tablet methylPREDN 2018-0 Yes TK UTD ON M ethodi ISolone 2-[address] (MEDROL 00:00: Hospita DOSEPAK) 4 00 l mg tablet Procedures This patient has no known procedures. Plan of Care Planned Activity Planned Date Details Comments Source Future Scheduled 2023-04-06 Screening for [facility] Test 14:59:30 malignant neoplasm of colon (procedure) [code = 004382482] Future Scheduled 2023-04-06 Screening for [facility] Test 14:59:30 malignant neoplasm of colon (procedure) [code = 392200904] Future Scheduled 2023-04-06 Screening for [facility] Test 14:59:30 malignant neoplasm of colon (procedure) [code = [id number]] Future Scheduled 2023-04-06 COVID-19 VACCINE (#1) [facility] Test 14:59:30 [code = COVID-19 VACCINE (#1)] Future Scheduled 2023-04-06 Screening for [facility] Test 14:59:30 malignant neoplasm of colon (procedure) [code = 777850926] Future Scheduled 2023-04-06 Screening for [facility] Test 14:59:30 malignant neoplasm of colon (procedure) [code = 228156825] Future Scheduled 2023-04-06 SHINGLES VACCINES (1 [facility] Test 14:59:30 of 2) [code = SHINGLES VACCINES (1 of 2)] Future Scheduled 2023-04-06 ZZZ INFLUENZA VACCINE [facility] Test 14:59:30 [code = ZZZ INFLUENZA VACCINE] Future Scheduled 2021-10-11 COLONOSCOPY SCREENING [facility] Test 20:36:09 [code = COLONOSCOPY SCREENING] Future Scheduled 2021-10-11 SHINGLES VACCINES [facility] Test 20:36:09 (#1) [code = SHINGLES VACCINES (#1)] Future Scheduled 2021-10-11 INFLUENZA VACCINE [facility] Test 20:36:09 [code = INFLUENZA VACCINE] Future Scheduled 2021-10-11 COVID-19 VACCINE (1) [facility] Test 20:36:09 [code = COVID-19 VACCINE (1)] Results This patient has no known results.
[2023-05-01 11:22] LABS: Protime INR 1.1
[2023-05-01 11:23] LABS: Absolute Lymphocytes (CBC) 1.5 K/uL (0.7-4.9); Hematocrit 44.1 % (39.6-49.0); Lymphocytes % 22.1 % (15.3-44.8); MPV 8.2 fL (7.6-11.3); Platelets 225 thou/uL (152-406); RBC Red Blood Cell Count 5.07 M/uL (4.33-5.43)
[2023-05-01 11:39] LABS: Albumin 3.9 g/dL (3.4-5.0); Bilirubin Direct 0.1 mg/dL (0-0.2); Bilirubin Indirect, Calculated 0.5 mg/dL (0.2-0.8); Bilirubin Total 0.6 mg/dL (0.2-1.0); Potassium 3.9 mEq/L (3.5-5.1); Protein, Total 7.2 g/dL (6.4-8.2); Troponin High Sensitivity 6.4 pg/mL (<58.9)
--- NOTE | 2023-05-01 11:42 | RAD REPORT ---
EXAM DESCRIPTION: RADChest Single View05/01/2023 11:22 am CLINICAL HISTORY: CHEST PAIN COMPARISON: Chest Pa And Lat (2 Views) dated 03/15/2021; Chest Single View dated 02/28/2021; Chest Sin gle View dated 02/26/2021; Chest Single View dated 02/24/2021 TECHNIQUE: Portable AP view of the chest. FINDINGS: The lungs are clear. No pneumothorax or effusion. The cardiomediastinal contours are unre markable. IMPRESSION: No acute cardiopulmonary process.
--- NOTE | 2023-05-01 12:12 | EKG ---
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
--- NOTE | 2023-05-01 12:39 | RAD REPORT ---
EXAM DESCRIPTION: CT - Angio Aorta For Dissection - 05/01/2023 12:20 pm CLINICAL HISTORY: chest pain COMPARISON: Chest Single View dated 05/01/2023 TECHNIQUE: Dynamically enhanced 3 mm thick images of the chest, abdomen, and upper pelvis were obtai verito during administration of approximately 100mL Isovue 370 IV contrast. Sagittal and coronal reconst ructions as well as maximal intensity projection reconstruction were generated and reviewed per an [facility] angiography protocol. All CT scans are performed using dose optimization technique as appropriate and may include automated exposure control or mA/KV adjustment according to patient size. FINDINGS: Aorta is normal in diameter with no dissection or other acute aortic findings. Reconstruct ion images show no significant findings. Pulmonary arteries are normal as well. No mass or infiltrate in the lung parenchyma. Faint reticular opacities bilaterally, may reflect reso lving interstitial changes or scarring. No pleural thickening, pleural effusion or pneumothorax. No abnormal mediastinal or hilar mass or lymphadenopathy seen. No chest wall mass or abnormal axillar y lymphadenopathy. Celiac, SMA and renal arteries show no suspicious findings. Streaky areas of hypoattenuation along th e main portal vein likely relate to mixing of contrast. Diffuse hepatic parenchymal hypoattenuation s uggesting steatosis. Two small gallstones are seen near the gallbladder neck. Small umbilical hernia containing fat. Solid abdominal viscera and bowel show no other significant findings. No mass or abno rmal lymphadenopathy. IMPRESSION: No acute abnormalities on CT angiogram of the aorta. No other acute findings. Incidental findings including diffuse hepatic steatosis, and small gallbladder calculi.
[2023-05-01] MEDS ORDERED: ASPIRIN 81 MG CHEWABLE TABLET ONE (13:40)
--- NOTE | 2023-05-01 14:02 | EDPHYS ---
Physician Documentation [facility] Name: Angel Luis Sales Age: 62 yrs Sex: Male : 1960 Arrival Date: 05/01/2023 Time: 10:44 Bed 19 Private MD: ED Physician Lv Mccurdy HPI: 05/01 13:58 This 62 yrs old Male presents to ER via Ambulatory with complaints of Chest Pain, Left rn Arm Tingling/Weakness. 13:58 The patient or guardian reports chest pain that is located primarily in the substernal rn area. Onset: this morning. The pain radiates to both arms. Associated signs and symptoms: Pertinent negatives: abdominal pain, cough, diaphoresis, dizziness, lower extremity swelling, recent travel, shortness of breath, syncope, vomiting. Duration: The patient or guardian reports multiple episodes, that are intermittent. Modifying factors: The symptoms are alleviated by nothing. the symptoms are aggravated by nothing. Severity of pain: At its worst the pain was moderate in the emergency department the pain has improved. The patient has not experienced similar symptoms in the past. Pt reports intermittent chest pain recently, worse this AM, became moderate with radiation to both shoulders, at rest. No fever. No cough. No trauma. No abd pain. No hx of cardiac evaluation. . Historical: - Allergies: 10:51 Latex, Natural Rubber; iw 10:51 PENICILLINS; iw - Home Meds: 10:51 None [Active]; iw - PMHx: 10:51 None; iw - PSHx: 10:51 right shoulder; right knee; back; iw - Immunization history:: Adult Immunizations up to date. - Social history:: Smoking status: unknown. - Family history:: not pertinent. - Hospitalizations: : No recent hospitalization is reported. ROS: 13:58 Constitutional: Negative for fever, chills, and weight loss, Eyes: Negative for injury, rn pain, redness, and discharge, Neck: Negative for injury, pain, and swelling, Cardiovascular: Negative for palpitations, and edema, Respiratory: Negative for shortness of breath, cough, wheezing, and pleuritic chest pain, Abdomen/GI: Negative for abdominal pain, nausea, vomiting, diarrhea, and constipation, MS/Extremity: Negative for injury and deformity, Skin: Negative for injury, rash, and discoloration, Neuro: Negative for headache, weakness, numbness, tingling, and seizure. Exam: 13:58 Constitutional: This is a well developed, well nourished patient who is awake, alert, rn and in no acute distress. Head/Face: Normocephalic, atraumatic. Cardiovascular: Regular rate and rhythm. No pulse deficits. Respiratory: No increased work of breathing, no retractions or nasal flaring. Abdomen/GI: Soft, non-tender Skin: Warm, dry MS/ Extremity: Pulses equal, no cyanosis. Neuro: Awake and alert, GCS 15 17:20 ECG was reviewed by the Attending Physician. rn Vital Signs: 10:50 BP 151 / 103; Pulse 72; Resp 16; Temp 98.4; Pulse Ox 99% on R/A; iw 11:31 BP 149 / 95; Pulse 67; Resp 18; Pulse Ox 96% on R/A; eh3 12:30 BP 135 / 84; Pulse 75; Resp 16; Pulse Ox 99% on R/A; eh3 13:30 BP 141 / 85; Pulse 64; Resp 14; Pulse Ox 97% on R/A; eh3 14:30 BP 137 / 80; Pulse 65; Resp 16; Pulse Ox 96% on R/A; iw MDM: 10:51 Patient medically screened. rn 13:58 Differential diagnosis: acute myocardial infarction, anxiety, coronary artery disease rn chest wall pain, costochondritis, esophagitis, gastritis, gastroesophageal reflux disease (GERD), pleurisy, pneumonia, pneumothorax, pulmonary embolus, stable angina, thoracic aortic disection, unstable angina. HEART Score: History: Moderately Suspicious (1), ECG: Non specific repolarization disturbance / LBTB / PM (1), Age: > 45 and < 65 years (1), Risk Factors: No Risk Factors Known (0), Troponin: < or = 1 x Normal Limit (0), Total Score = 3. The patient was given aspirin in the Emergency Department. Data reviewed: vital signs, nurses notes, lab test result(s), EKG, radiologic studies, CT scan, plain films, and as a result, I will admit patient. Counseling: I had a detailed discussion with the patient and/or guardian regarding the historical points, exam findings, and any diagnostic results supporting the discharge/admit diagnosis, lab results, radiology results, the need for further work-up and treatment in the hospital. 05/01 10:58 Order name: Basic Metabolic Panel; Complete Time: 11:44 rn 05/01 10:58 Order name: CBC with Diff; Complete Time: 11:44 rn 05/01 10:58 Order name: LFT's; Complete Time: 11:44 rn 05/01 10:58 Order name: NT PRO-BNP; Complete Time: 11:44 rn 05/01 10:58 Order name: PT-INR; Complete Time: 11:44 rn 05/01 10:58 Order name: Troponin HS; Complete Time: 11:44 rn 05/01 16:00 Order name: Troponin High Sensitivity EDMS 05/01 16:00 Order name: Troponin High Sensitivity EDMS 05/01 16:00 Order name: Troponin High Sensitivity EDMS 05/01 16:04 Order name: Hemoglobin A1c EDMS 05/01 16:04 Order name: Lipid Profile EDMS 05/01 16:07 Order name: Magnesium EDMS 05/01 16:07 Order name: Phosphorus EDMS 05/01 16:07 Order name: T4 Free EDMS 05/01 16:07 Order name: Thyroid Stimulating Hormone EDMS 05/01 16:07 Order name: Urinalysis w/ reflexes EDMS 05/01 16:07 Order name: Basic Metabolic Panel EDMS 05/01 16:07 Order name: Basic Metabolic Panel EDMS 05/01 16:07 Order name: CBC with Automated Diff EDMS 05/01 16:07 Order name: CBC with Automated Diff EDMS 05/01 10:58 Order name: XRAY Chest (1 view); Complete Time: 11:44 rn 05/01 10:58 Order name: CT Aorta for Dissection; Complete Time: 13:20 rn 05/01 16:00 Order name: Echo with Doppler EDMS 05/01 16:04 Order name: Head Brain Wo Cont EDMS 05/01 10:58 Order name: EKG; Complete Time: 10:59 rn 05/01 15:58 Order name: CONS Physician Consult EDMS 05/01 16:07 Order name: Regular EDMS 05/01 10:58 Order name: Cardiac monitoring; Complete Time: 11:29 rn 05/01 10:58 Order name: EKG - Nurse/Tech; Complete Time: 11:09 rn 05/01 10:58 Order name: IV Saline Lock; Complete Time: 11:09 rn 05/01 10:58 Order name: Labs collected and sent; Complete Time: 11: rn 05/01 10:58 Order name: O2 Per Protocol; Complete Time: rn 05/01 10:58 Order name: O2 Sat Monitoring; Complete Time: rn EC:20 Rate is 64 beats/min. Rhythm is regular. QRS Mobile is Normal. NH interval is normal. QRS rn interval is normal. QT interval is normal. No Q waves. T waves are Normal. No ST changes noted. Clinical impression: Normal ECG. Interpreted by me. Reviewed by me. Administered Medications: 13:38 Drug: Aspirin PO Chewable Tablet 324 mg Route: PO; eh3 14:41 Follow up: Response: No adverse reaction iw Disposition Summary: 05/01/23 14:02 Hospitalization Ordered Hospitalization Status: Observation rn Provider: Frank Capps rn Location: Telemetry/MedSurg (observation) rn Condition: Stable rn Problem: new rn Symptoms: have improved rn Bed/Room Type: Standard rn Room Assignment: [facility](05/01/23 16:13) tariq Diagnosis - Chest pain, unspecified rn Forms: - Medication Reconciliation Form rn - SBAR form rn - Leadership Thank You Letter rn Signatures: Dispatcher [employer] Izabel Katz RN Lv Parikh MD MD rn Aguilar, Jose RN Lisha Fine RN RN 3 Corrections: (The following items were deleted from the chart) 16:13 14:02 lilia potter
--- NOTE | 2023-05-01 14:02 | ER ---
Nurse's Notes [facility] Name: Angel Luis Sales Age: 62 yrs Sex: Male : 1960 Arrival Date: 05/01/2023 Time: 10:44 Bed 19 Private MD: Diagnosis: Chest pain, unspecified Presentation: 05/01 10:50 Chief complaint: Patient states: chest pain this morning and the upper part of my arms iw were hurting and went numb, still having slight pain in the chest. Coronavirus screen: At this time, the client does not indicate any symptoms associated with coronavirus-19. Ebola Screen: Patient negative for fever greater than or equal to 101.5 degrees Fahrenheit, and additional compatible Ebola Virus Disease symptoms. Initial Sepsis Screen: Does the patient meet any 2 criteria? No. Patient's initial sepsis screen is negative. Does the patient have a suspected source of infection? No. Patient's initial sepsis screen is negative. Risk Assessment: Do you want to hurt yourself or someone else? Patient reports no desire to harm self or others. Onset of symptoms was May 01, 2023. 10:50 Method Of Arrival: Ambulatory iw 10:50 Acuity: JOE 3 iw Historical: - Allergies: 10:51 Latex, Natural Rubber; iw 10:51 PENICILLINS; iw - Home Meds: 10:51 None [Active]; iw - PMHx: 10:51 None; iw - PSHx: 10:51 right shoulder; right knee; back; iw - Immunization history:: Adult Immunizations up to date. - Social history:: Smoking status: unknown. - Family history:: not pertinent. - Hospitalizations: : No recent hospitalization is reported. Screenin:29 [facility] ED Fall Risk Assessment (Adult) Score/Fall Risk Level 0 - 2 = Low Risk. Abuse eh3 screen: Denies threats or abuse. Denies injuries from another. Nutritional screening: No deficits noted. Tuberculosis screening: No symptoms or risk factors identified. Assessment: 11:29 General: Appears in no apparent distress. uncomfortable, Behavior is calm, cooperative, eh3 appropriate for age. Pain: Complains of pain in chest Pain does not radiate. Pain began 3 hours ago. Neuro: Level of Consciousness is awake, alert, obeys commands, Oriented to person, place, time, situation. Cardiovascular: Capillary refill < 3 seconds Patient's skin is warm and dry. Rhythm is sinus rhythm. Respiratory: Airway is patent Respiratory effort is even, unlabored, Respiratory pattern is regular, symmetrical. GI: Abdomen is round non-distended. Derm: Skin is pink, warm \T\ dry. Musculoskeletal: Circulation, motion, and sensation intact. 12:30 Reassessment: Patient appears in no apparent distress at this time. Patient and/or eh3 family updated on plan of care and expected duration. Pain level reassessed. Patient is alert, oriented x 3, equal unlabored respirations, skin warm/dry/pink. 13:30 Reassessment: Patient appears in no apparent distress at this time. Patient and/or eh3 family updated on plan of care and expected duration. Pain level reassessed. Patient is alert, oriented x 3, equal unlabored respirations, skin warm/dry/pink. 14:30 Reassessment: Patient appears in no apparent distress at this time. Patient and/or iw family updated on plan of care and expected duration. Pain level reassessed. Patient is alert, oriented x 3, equal unlabored respirations, skin warm/dry/pink. Vital Signs: 10:50 BP 151 / 103; Pulse 72; Resp 16; Temp 98.4; Pulse Ox 99% on R/A; iw 11:31 BP 149 / 95; Pulse 67; Resp 18; Pulse Ox 96% on R/A; eh3 12:30 BP 135 / 84; Pulse 75; Resp 16; Pulse Ox 99% on R/A; eh3 13:30 BP 141 / 85; Pulse 64; Resp 14; Pulse Ox 97% on R/A; eh3 14:30 BP 137 / 80; Pulse 65; Resp 16; Pulse Ox 96% on R/A; iw ED Course: 10:47 Patient arrived in ED. mg5 10:51 Triage completed. iw 10:51 Lv Mccurdy MD is Attending Physician. rn 10:52 Arm band placed on. iw 11:09 Inserted saline lock: 20 gauge in left antecubital area, using aseptic technique. Blood iw collected. Patient maintains SpO2 saturation greater than 95% on room air. 11:21 X-ray completed. Patient tolerated procedure well. md2 11:24 XRAY Chest (1 view) In Process Unspecified. EDMS 11:26 Lisha Zamora, RN is Primary Nurse. eh3 11:29 Patient has correct armband on for positive identification. Bed in low position. Call eh3 light in reach. Side rails up X2. Adult w/ patient. Provided Education on: Use of call andrade. Client placed on continuous cardiac and pulse oximetry monitoring. NIBP monitoring applied. 12:22 CT Aorta for Dissection In Process Unspecified. EDMS 14:02 Frank Capps is Hospitalizing Provider. rn 16:44 Head Brain Wo Cont In Process Unspecified. EDMS 18:18 No provider procedures requiring assistance completed. Patient admitted, IV remains in iw place. Administered Medications: 13:38 Drug: Aspirin PO Chewable Tablet 324 mg Route: PO; eh3 14:41 Follow up: Response: No adverse reaction iw Medication: 18:18 VIS not applicable for this client. iw Outcome: 14:02 Decision to Hospitalize by Provider. rn 18:18 Admitted to Med/surg accompanied by tech, via wheelchair, room 206, Report called to [facility] 18:18 Condition: stable 18:18 Instructed on the need for admit. 18:35 Patient left the ED. eh3 Signatures: Dispatcher [employer] EDIzabel Mcguire RN RN Lv Mccurdy MD MD rn Hall, Erin, ANGELICA DOMINGUEZ 3 Zaria Cordova md2 Claudia Pathak mg5 Corrections: (The following items were deleted from the chart) 10:52 10:50 Resp 16bpm; Pulse Ox 99% RA; Temp 98.4F; iw iw 11:31 11:29 Pain: Complains of pain in chest Pain does not radiate. Pain began 1 hour ago. eh33
[2023-05-01] MEDS ORDERED: HYDROCODONE/APAP 5/325 MG TAB PO PRN (15:56)
[2023-05-01] MEDS ORDERED: ACETAMINOPHEN 325 MG TABLET PO PRN (15:56)
[2023-05-01] MEDS ORDERED: ONDANSETRON 4 MG/2 ML VIAL IV PRN (16:04)
--- NOTE | 2023-05-01 16:07 | P.HP ---
Certification for Inpatient Patient admitted to: Observation With expected LOS: <2 Midnights Patient will require the following post-hospital care: None Practitioner: I am a practitioner with admitting privileges, knowledge of patient current condition, hospital course, and medical plan of care. Services: Services provided to patient in accordance with Admission requirements found in Title 42 Section 412.3 of the Code of Federal Regulations Patient History Date of Service: 05/01/23 Reason for admission: Chest pain History of Present Illness: Patient is a 62-year-old male with a past medical history significant for COVID- 19 infection, back pain who presents with complaint of chest pain located in the substernal chest area. Patient is a poor historian and unable to provide accurate history. Patient reported that chest pain has been ongoing intermittently for quite some time now. Patient rated pain as 9/10 in severity and described pain as stabbing in quality. Patient indicated that chest pain radiates to his bilateral arms. Patient also reports that chest pain became worse this morning. Patient reported associated signs and symptoms of bilateral arm weakness and numbness. Patient denies any other signs or symptoms. Symptoms are aggravated or relieved by nothing. Patient decided to present to the hospital due to worsening symptoms. 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 - Social History Smoking Status: Never smoker Alcohol use: No CD- Drugs: No Caffeine use: No Place of Residence: Home Review of Systems General: Unremarkable Eyes: Unremarkable ENT: Unremarkable Respiratory: Unremarkable Cardiovascular: Chest Pain Gastrointestinal: Unremarkable Genitourinary: Unremarkable Musculoskeletal: Unremarkable Integumentary: Unremarkable Neurological: Weakness, Numbness Lymphatics: Unremarkable Physical Examination - Physical Exam General: Alert, In no apparent distress, Oriented x3, Cooperative HEENT: Atraumatic, PERRLA, Mucous membr. moist/pink, EOMI, Sclerae nonicteric Neck: Supple, 2+ carotid pulse no bruit, No LAD, Without JVD or thyroid abnormality Respiratory: Clear to auscultation bilaterally, Normal air movement Cardiovascular: No edema, Regular rate/rhythm, Normal S1 S2 Capillary refill: <2 Seconds Gastrointestinal: Normal bowel sounds, Non-distended, No tenderness Musculoskeletal: No clubbing, No swelling, No tenderness Integumentary: No rashes Neurological: Normal gait, Normal speech, Normal strength at 5/5 x4 extr, Normal tone, Normal affect Lymphatics: No axilla or inguinal lymphadenopathy - Studies Laboratory Data (last 24 hrs) 05/01/23 05/01/23 05/01/23 11:06 11:06 11:06 WBC 6.60 Hgb 15.2 Hct 44.1 Plt Count 225 PT 12.1 INR 1.10 Sodium 138 Potassium 3.9 BUN 15 Creatinine 0.97 Glucose 93 Total Bilirubin 0.6 AST 25 ALT 44 Alkaline Phosphatase 57 Assessment and Plan - Plan --Chest pain. Serial troponins negative. Echocardiogram pending to assess LV\valvular function and wall motion. Telemetry. Cardiology consulted. Plan for stress testing in am. We will await further recommendations. --Hyperlipidemia. Patient placed on statin. --Elevated blood pressure without a diagnosis of hypertension. We will manage BP with hydralazine as needed. --Chronic back pain. We will manage pain with current pain medication regimen. -- Bilateral arm weakness and numbness. Currently resolved at time of assessment. CT head unremarkable for any acute intracranial abnormality. Continue supportive care. -- DVT prophylaxis with Lovenox subQ. Discharge Plan: Home Plan to discharge in: 48 Hours - Advance Directives Does patient have a Living Will: No Does patient have a Durable POA for Healthcare: No - Code Status/Comfort Care Code Status Assessed: Yes Physician Review: Patient Assessed, Agree with Above Assessment and Plan Critical Care: No
--- NOTE | 2023-05-01 16:47 | RAD REPORT ---
EXAM DESCRIPTION: CT - Head Brain Wo Cont - 05/01/2023 4:43 pm CLINICAL HISTORY: BUE weakness Numbness Headache, drowsiness, weakness COMPARISON: HEAD BRAIN W O CONTRAST dated 03/02/2010 TECHNIQUE: All CT scans are performed using dose optimization technique as appropriate and may inclu de automated exposure control or mA/KV adjustment according to patient size. FINDINGS: No intracranial hemorrhage, hydrocephalus or extra-axial fluid collection.No areas of brai n edema or evidence of midline shift. The paranasal sinuses and mastoids are clear. The calvarium is intact. IMPRESSION: No acute intracranial abnormality.
[2023-05-01 17:02] LABS: Magnesium 2.3 mg/dL (1.6-2.4); Phosphorus 3.4 mg/dL (2.5-4.9); Thyroid Stimulating Hormone 2.01 uIU/mL (0.358-3.740)
[2023-05-01 20:39] VITALS: BMI 26.8
[2023-05-01] MEDS: ENOXAPARIN 40 MG/0.4 ML SQ SCH (20:51)
[2023-05-01] MEDS ORDERED: ATORVASTATIN 40 MG TAB PO SCH (21:00)
--- NOTE | 2023-05-01 21:43 | CON ---
Date of Consultation: 05/01/2023 Reason For Consultation: Chest pain. History Of Present Illness: A 62-year-old male with no past medical history, was sitting behind his desk doing work and started having severe chest pain, retrosternal, radiates to both arms, lasted for about 30 seconds and resolved, but he has been having on and off chest pains like that in the past f ew weeks and is getting more frequent. Denies having any active chest pain now. No shortness of moy ath. Review of Systems: No chest pain. No shortness of breath, orthopnea, cough. No nausea, vomiting, diarrhea at the prese nt time. Other systems reviewed are negative. He had chest pain earlier. Physical Examination: Vital signs: Reviewed. Head and Neck: Pupils are equal, reactive to light. Intact eye movements. No JVD. No cervical lym phadenopathy. Neck is supple. Thyroid is not enlarged. Lungs: Clear to auscultation bilaterally. No rhonchi, wheezing, or crackles. No accessory muscle u se. Heart: Regular rate and rhythm. No extra sounds. Abdomen: Soft, nontender. Bowel sounds positive. No organomegaly. No masses or hernia. No rigidi ty or rebound. Extremities: No edema, clubbing, cyanosis. Intact pulses. Skin: No rash. Neurologic: Alert, awake, oriented x3. No acute focal deficits appreciated. Lymph Nodes: No cervical lymphadenopathy. Investigations: Labs were reviewed. Assessment/recommendations: 1.Chest pain is atypical, but this could be unstable angina. If cardiac enzymes are all negative, o btain exercise nuclear stress test and an echo tomorrow to further evaluate. 2.Dyslipidemia. Start on Lipitor 40 mg at bedtime. SR/MODL Voice ID: [id number] Report ID: [id number]
[2023-05-01 22:58] LABS: Specific Gravity 1.026 (1.005-1.030); Urine Bacteria None Seen /HPF (<20); Urine Bilirubin NEGATIVE (Negative); Urine Blood Negative (Negative); Urine Clarity Clear (Clear); Urine Color Light-Yellow (Yellow); Urine Glucose NEGATIVE (Negative); Urine Mucus Slight /HPF (None Seen); Urine Protein NEGATIVE (Negative); Urine RBC <5 /HPF (None Seen); Urine Urobilinogen Normal (Normal); Urine pH 6.5 (5.0-7.0)
[2023-05-02] MEDS ORDERED: HYDRALAZINE HCL 20 MG/ML VIAL IV PRN (03:55)
[2023-05-02 04:24] LABS: Absolute Lymphocytes (CBC) 1.4 K/uL (0.7-4.9); Hematocrit 41.1 % (39.6-49.0); Lymphocytes % 25.3 % (15.3-44.8); MCV 86.5 fL (80-100); MPV 8.5 fL (7.6-11.3); Platelets 210 thou/uL (152-406); RBC Red Blood Cell Count 4.75 M/uL (4.33-5.43)
[2023-05-02 05:09] LABS: Potassium 3.9 mEq/L (3.5-5.1)
[2023-05-02] MEDS ORDERED: REGADENOSON 0.4 MG/5 ML SYR IV ONE (07:36)
[2023-05-02] MEDS: ASPIRIN 81 MG CHEWABLE TABLET PO SCH ×2 (09:00→11:44)
[2023-05-02] MEDS: ENOXAPARIN 40 MG/0.4 ML SQ SCH ×2 (09:00→10:09)
[2023-05-02] MEDS ORDERED: POTASSIUM CL SA 10 MEQ TAB PO ONE (09:00)
--- NOTE | 2023-05-02 11:43 | RAD REPORT ---
EXAM DESCRIPTION: NM - Rest Stress Cardiac Imaging - 05/02/2023 11:24 am CLINICAL HISTORY: Chest pain. COMPARISON: None. TECHNIQUE: The patient was administered 10.2 mCi of Tc 99m Sestamibi prior to resting SPECT imaging of the heart. The patient was then administered 30.8 mCi of Tc 99m Sestamibi following exercise or ph armacologic stress. Multiplanar SPECT images were reviewed. FINDINGS: There is uniformity of radiotracer uptake involving the entire left ventricular myocardiu m on rest and stress images. The left ventricular ejection fraction equals 58% IMPRESSION: Negative for a myocardial perfusion defect
--- NOTE | 2023-05-02 12:11 | P.DS ---
Admission Date: 05/01/23 Discharge Date: 05/02/23 Disposition: ROUTINE DISCHARGE Discharge Condition: GOOD Reason for Admission: Chest pain Consultations: Cardiology - Dr. Pierre Brief History of Present Illness: 62yo M, PMH: COVID-19 infection, back pain Patient presents with complaint of chest pain located in the substernal chest area. Patient is a poor historian and unable to provide accurate history. Patient reported that chest pain has been ongoing intermittently for quite some time now. Patient rated pain as 9/10 in severity and described pain as stabbing in quality. Patient indicated that chest pain radiates to his bilateral arms. Patient also reports that chest pain became worse this morning. Patient reported associated signs and symptoms of bilateral arm weakness and numbness. Patient denies any other signs or symptoms. Symptoms are aggravated or relieved by nothing. Hospital Course: Problem List: Chest pain Hyperlipidemia Hypertension Chronic back pain Bilateral arm weakness Patient presented with chest pain. Troponins were negative. EKG, normal, BNP normal, chest x-ray negative for any acute findings. Cardiology was consulted. Stress test was negative. No acute findings on workup, and does not need further inpatient evaluation. Dr. Pierre recommended to follow up as outpatient. During his hospitalization, patients cholesterol was noted to be elevated. He reported being told it was borderline elevated earlier this year. Discussed ASCVD risk score and patient will follow up with PCP for further discussion as he would likely benefit starting on a statin given current results/vitals. 05/01: Total cholesterol: 231 (range <200), LDL cholesterol: 153 (range <130) Continue home meds as previously prescribed Follow up: PCP 3-5 days Cardiology in a few weeks Incidental findings on CT: Diffuse hepatic steatosis, small gallbladder calculi, small umbilical hernia Recommend follow up with PCP Physical Exam: GEN: Alert, oriented, NAD HEENT: Normal conjunctiva, sclera anicteric CV: Regular rate and rhythm, no edema Pulm: Nonlabored respirations on room air ABD: Soft, nontender, nondistended Neuro: Normal speech, normal affect Vital Signs/Physical Exam: Temp Pulse Resp BP Pulse Ox 97.1 F 77 16 126/80 98 05/02/23 08:00 05/02/23 08:00 05/02/23 08:00 05/02/23 08:00 05/02/23 08:00 Laboratory Data at Discharge: WBC 5.60 thou/uL (4.3-10.9) 05/02/23 03:43 Hgb 15.2 g/dL (13.6-17.9) 05/02/23 03:43 Hct 41.1 % (39.6-49.0) 05/02/23 03:43 Plt Count 210 thou/uL (152-406) 05/02/23 03:43 PT 12.1 SECONDS (9.5-12.5) 05/01/23 11:06 INR 1.10 05/01/23 11:06 Sodium 138 mEq/L (136-145) 05/02/23 03:43 Potassium 3.9 mEq/L (3.5-5.1) 05/02/23 03:43 BUN 17 mg/dL (7-18) 05/02/23 03:43 Creatinine 0.97 mg/dL (0.70-1.30) 05/02/23 03:43 Glucose 145 mg/dL (74-106) H 05/02/23 03:43 Phosphorus 3.4 mg/dL (2.5-4.9) 05/01/23 16:29 Magnesium 2.3 mg/dL (1.6-2.4) 05/01/23 16:29 Total Bilirubin 0.6 mg/dL (0.2-1.0) 05/01/23 11:06 AST 25 U/L (15-37) 05/01/23 11:06 ALT 44 U/L (16-61) 05/01/23 11:06 Alkaline Phosphatase 57 U/L (45-117) 05/01/23 11:06 Triglycerides 164 mg/dL (<150) H 05/01/23 16:29 Cholesterol 231 mg/dL (<200) H 05/01/23 16:29 HDL Cholesterol 45 mg/dL (40-60) 05/01/23 16:29 Cholesterol/HDL Ratio 5.13 05/01/23 16:29 Home Medications: NK [No Home Meds] 05/01/23 Physician Discharge Instructions: Patient presented with chest pain. Troponins were negative. EKG, normal, BNP normal, chest x-ray negative for any acute findings. Cardiology was consulted. Stress test was negative. No acute findings on workup, and does not need further inpatient evaluation. Dr. Pierre recommended to follow up as outpatient. During his hospitalization, patients cholesterol was noted to be elevated. He reported being told it was borderline elevated earlier this year. Discussed ASCVD risk score and patient will follow up with PCP for further discussion as he would likely benefit starting on a statin given current results/vitals. 05/01: Total cholesterol: 231 (range <200), LDL cholesterol: 153 (range <130) Continue home meds as previously prescribed Follow up: PCP 3-5 days Cardiology in a few weeks Incidental findings on CT dissection protocol: Diffuse hepatic steatosis, small gallbladder calculi, small umbilical hernia Recommend follow up with PCP Followup: NONE,NONE [Primary Care Provider] - Time spent managing pt's care (in minutes): 45
[2023-05-02 12:35] VITALS: TEMP 97.7
[2023-05-02 16:09] VITALS: O2SAT 96
[2023-05-02 16:11] VITALS: BP 133/76
--- NOTE | 2023-05-02 20:31 | PN ---
Date of Progress Note: 05/02/2023 Subjective: Seen by bedside. Doing well. No further chest pain. Echo normal ejection fraction, an d a stress test was negative. Review of Systems: No chest pain, shortness of breath, orthopnea, or cough. No nausea, vomiting, or diarrhea. All othe r systems were reviewed and they were negative. Physical Examination: Vital Signs: Reviewed. Head and Neck: Pupils are equal, reactive to light. Intact eye movements. No JVD. No cervical lym phadenopathy. Neck is supple. Thyroid is not enlarged. Lungs: Clear to auscultation bilaterally. No rhonchi, wheezing, or crackles. No accessory muscle u se. Heart: Regular rate and rhythm. No extra sounds. Abdomen: Soft, nontender. Bowel sounds positive. No organomegaly. No masses or hernia. No rigidi ty or rebound. Extremities: No edema, clubbing, or cyanosis. Intact pulses. Skin: No rash. No nodule. Neurologic: Alert, awake, oriented x3. No acute focal deficits appreciated. Investigations: BUN 17, creatinine 0.97, and hemoglobin is 15.2. Assessment And Recommendations: 1.Chest pain. Stress test is negative for ischemia. Cardiac enzymes are negative. An echo shows a normal ejection fraction. Patient was assured. This is likely noncardiac in nature. Patient can b e released from cardiology standpoint and follow up with me in 1 month. If he continues to have ches t pain then we will plan for coronary angiogram. 2.Dyslipidemia. Tolerating Lipitor 40 mg q.h.s. To be continued as an outpatient and follow up in the office in 4 weeks. /RAHULL Voice ID: [id number] Report ID: [id number]
[2023-05-02] MEDS ORDERED: ATORVASTATIN 40 MG TAB PO SCH (21:00)
--- NOTE | 2023-05-03 07:17 | ECHO ---
HEIGHT: 5 ft 6 in WEIGHT: 166 lb 2 oz DATE OF STUDY: 05/02/[address]: Tyree Cantu 2-DIMENSIONAL: YES M.MODE: YES DOPPLER: YES COLOR FLOW: YES TDS: PORTABLE: YES DEFINITY: BUBBLE STUDY: DIAGNOSIS: CHEST PAIN CARDIAC HISTORY: CATHERIZATION: SURGERY: PROSTHETIC VALVE: PACEMAKER: MEASUREMENTS (cm) DIASTOLIC (NORMALS) SYSTOLIC (NORMALS) IVSd 1.0 (0.6-1.2) LA Diam 3.7 (1.9-4.0) LVEF 61% LVIDd 4.2 (3.5-5.7) LVIDs 2.8 (2.0-3.5) %FS 33% LVPWd 1.2 (0.6-1.2) Ao Diam 2.7 (2.0-3.7) 2 DIMENSIONAL ASSESSMENT: RIGHT ATRIUM: NORMAL LEFT ATRIUM: NORMAL RIGHT VENTRICLE: NORMAL LEFT VENTRICLE: NORMAL TRICUSPID VALVE: NORMAL MITRAL VALVE: NORMAL PULMONIC VALVE: NORMAL AORTIC VALVE: NORMAL PERICARDIAL EFFUSION: NONE AORTIC ROOT: NORMAL LEFT VENTRICULAR WALL MOTION: NORMAL DOPPLER/COLOR FLOW: TRACE TRICUSPID REGURGITATION COMMENTS: 1. NORMAL LEFT VENTRICULAR EJECTION FRACTION 55-60% 2. NORMAL WALL MOTION 3. NORMAL DIASTOLIC FUCNTION TECHNOLOGIST: DAVID HOGAN
--- NOTE | 2023-05-03 07:51 | TREADPHA ---
DX: CHEST PAIN Date of Study: 05/02/2023 Ht: 5' 6 " Wt: 166 lb 2 oz Consulting Physician: FLORA MEDICATIONS: TYLENOL, NORCO 5/325, ASPIRIN, LIPITOR, LOVENOX, APRESOLINE, ZOFRAN, KLOR-CON HISTORY: 62 YEAR OLD MALE WITH COMPLAINTS OF CHEST PAIN. DENIES PREVIOUS MEDICAL HISTORY. DENIES SMOKIMNG, ALCOHOL USE, DRUG USE OR PREVIOUS HEART SURGERIES. PHYSICIAL EXAMINATION: RESTING B.P.: 139/94 RESTING H.R.: 62 RESTING EKG: NORMAL SINUS RHYTHM, WITHIN NORMAL LIMITS PROTOCOL: PHARMACOLOGIC EXERCISE TIME: 3:30 B.P. AT PEAK STRESS: 132/78 IMPRESSION: LEXISCAN INJECTED. CARDIOLITE GIVEN PER PROTOCOL. SEE NUCLEAR MEDICINE REPORT. NO PREMATURE ATRIAL COMPLEXES, SUPRAVENTRICULAR TACHYCARDIA, VENTRICULAR TACHYCARDIA OR PREMATURE VENTRICULAR COMPLEXES NOTED. PATIENT COMPLAINT OF SHORTNESS OF BREATH. NO ELECTROCARDIOGRAM CHANGES OF ISCHEMIA WITH LEXISCAN.
== END 2023-05-02 17:03 | disposition home or self-care (01) ==
LOC: ER 10:44 → ERHOLD 15:55 → 2ND 17:27
PROVIDERS: ADMIT Internal Medicine; ATTEND Hospitalist
DX: R07.89 Other chest pain (principal); M54.9 Dorsalgia, unspecified; E78.5 Hyperlipidemia, unspecified; R53.1 Weakness; K42.9 Umbilical hernia without obstruction or gangrene; K80.20 Calculus of gallbladder without cholecystitis without obstruction; K76.0 Fatty (change of) liver, not elsewhere classified; Z86.16 Personal history of COVID-19; Z88.0 Allergy status to penicillin; Z91.040 Latex allergy status
CPT/HCPCS: 93005; 93306; 85025 ×2; 81001; 80048 ×2; 36415 ×2; 83735; 84100; 85610; 80061; 80076; 84443; 83036; 84484 ×3; 84439; 83880; 70450; 71275; 74175; 71045; 78452; 99285; Q9967; J2785; J1650 ×2; A9500; 93017; G0378